=== PATIENT | female | born 1945 | race Caucasian/White ===

== ENCOUNTER 2020-03-26 12:56 | Outpatient (CLI) | payer MEDICARE, OTHER, SELFPAY ==
--- NOTE | ~2020-03-26 | XR_ITS ---
XR humerus RT DATE: 03/26/2020 13:26 INDICATION: Arm slammed in door. Pain and bruising of mid upper arm TECHNIQUE: AP and lateral views COMPARISON: None FINDINGS: No fracture or dislocation, periosteal reaction or bone destruction. Normal alignment at th e acromioclavicular, glenohumeral and elbow joints. IMPRESSION: No fracture or dislocation Reviewed, dictated and finalized at location A. IMPRESSION: No fracture or dislocation
== END 2020-03-26 12:57 | disposition home or self-care (01) ==
PROVIDERS: PCP Family Medicine; Visit Provider Family Medicine
DX: S49.91XA Unspecified injury of right shoulder and upper arm, initial encounter (principal); X58.XXXA Exposure to other specified factors, initial encounter
CPT/HCPCS: 73060

== ENCOUNTER → 2021-04-28 14:13 | Outpatient (CLI) | payer MEDICARE, OTHER, SELFPAY ==
--- NOTE | ~2021-04-28 | MMUS_ITS ---
EXAMINATION: MM diagnostic marvin BI w troy, US breast BI complete HISTORY: Bilateral superior breast pain TECHNIQUE: Bilateral ML, MLO and craniocaudal 3-D tomosynthesis images were performed and synthetic 2-D images were generated. CAD analysis was submitted and interpreted. High resolution complete bilat eral breast ultrasound including all 4 quadrants and subareolar areas was performed. COMPARISON: None BREAST PARENCHYMAL COMPOSITION: The breasts are heterogeneously dense, which may obscure small masses . FINDINGS: MAMMOGRAPHIC FINDINGS: There is nodular appearance of the fibroglandular stroma throughout both breasts which may obscure sm all masses. Bilateral complete breast ultrasound was performed. No architectural distortion, malignant calcification, skin thickening or retraction of either breast is evident. There are scattered bilateral benign calcifications. ULTRASOUND: No suspicious mass or shadowing of either breast is detected. IMPRESSION: 1. Benign calcification; no mammographic evidence of malignancy 2. Routine annual mammographic screening is recommended. BI-RADS Category 2: Benign finding(s). Reviewed, dictated and finalized at location A. PRODUCT IMPRESSION: 1. Benign calcification; no mammographic evidence of malignancy 2. Routine annual mammographic screening is recommended. BI-RADS Category 2: Benign finding(s).
== END ==
PROVIDERS: PCP Family Medicine; Visit Provider Family Medicine
DX: N64.4 Mastodynia (principal)
CPT/HCPCS: 76641; 77062; 77066; G0279

== ENCOUNTER 2022-08-08 11:50 | Emergency (ER) | payer MEDICARE, SELFPAY ==
--- NOTE | ~2022-08-08 | XR_ITS ---
XR shoulder LT min 2V 08/08/2022 12:32 Indication: Left shoulder pain and bruising Procedure: 4 views left shoulder Comparison: No prior studies for comparison. Findings: There is a minimally displaced vertically oriented fracture distal aspect of the clavicle. The acromioclavicular joint is intact. No other fracture. Osteopenia. Impression: 1: Minimally displaced distal clavicular fracture. Reviewed, dictated and finalized at location A. RANS SERVICES SPECIALIST Impression: 1: Minimally displaced distal clavicular fracture.
[2022-08-08 11:56] VITALS: BP 143/63; PULSE 73; RESP 14; TEMP 36.8; O2SAT 99
--- NOTE | 2022-08-08 14:25 | ED.FALL ---
HPI - Fall General Chief Complaint: Fall Stated Complaint: fall, left shoulder pain Time Seen by Provider: 08/08/22 14:06 History of Present Illness HPI Narrative: Patient is a 76-year-old female who presents ER with pain to her left shoulder. She did recover her Lux spaniel last night falling on her left side. She did not strike her head or lose consciousness. Has had increased pain in her shoulder and has been unable to use her left upper extremity at the shoulder due to pain. No numbness or tingling. Related Data Home Medications Medication Instructions Recorded Confirmed gabapentin 300 mg capsule 300 mg PO DAILY 05/22/19 metoprolol succinate 25 mg 25 mg PO DAILY 05/22/19 tablet,extended release 24 hr Allergies Allergy/AdvReac Type Severity Reaction Status Date / Time No Known Allergies Allergy Unverified 07/16/19 12:53 Review of Systems Musculoskeletal: Musculoskeletal: Reports arthralgias, Reports joint swelling and Denies muscle cramps Integumentary/Breasts: Skin/Breast: Denies erythema and Denies rash Comments: Bruising left shoulder Neurologic: Denies syncope, Denies focal weakness and Denies numbness PMFSH Past Medical History Medical History (Updated 08/08/22 @ 14:30 by Bernardino Beltran MD) Arthritis Inflammatory arthritis Surgical History Surgical History (Updated 08/08/22 @ 14:33 by Benrardino Beltran MD) No history of previous surgery Family History Family History Father Lung cancer Social History Social History Smoking status: Never smoker Alcohol intake: current Drinks per week: 1 Exam Narrative: GENERAL: Well-appearing, well-nourished, and in no acute distress. HEAD: Normocephalic, atraumatic. CHEST: Clear to auscultation. No respiratory distress. HEART: Regular rate and rhythm. Normal peripheral pulses. EXTREMITIES: Focused exam of the left upper extremity reveals bruising of the left shoulder at the clavicle and AC process. Tender in this area with slight swelling. Passive range of motion with internal and external rotation intact. Able to abduct to 90 degrees. Mild limitation in forward flexion due to pain. No range of motion or alert tenderness at the elbow or wrist muscle. NEURO: No focal deficits. Alert and oriented x3. PSYCH: Normal mood and affect. Course Course Emergency Course: Patient be placed in sling for comfort. Discussed diagnosis and treatment plan. Discussed range of motion exercises. Recommend follow-up with orthopedics. Vital Signs Vital signs: Vital Signs Temperature 98.2 F 08/08/22 11:56 Pulse Rate 73 08/08/22 11:56 Respiratory Rate 14 08/08/22 11:56 Blood Pressure 143/63 H 08/08/22 11:56 Pulse Oximetry 99 08/08/22 11:56 Oxygen Delivery Room Air 08/08/22 11:56 Temperature 98.2 F 08/08/22 11:56 Pulse Rate 72 08/08/22 15:04 Respiratory Rate 18 08/08/22 15:04 Blood Pressure 157/97 H 08/08/22 15:04 Pulse Oximetry 100 08/08/22 15:04 Oxygen Delivery Room Air 08/08/22 11:56 MDM - Fall Imaging Data Radiologist's impression: ITS Impressions Shoulder X-Ray 08/08/22 12:41 Impression: 1: Minimally displaced distal clavicular fracture. Discharge Plan Discharge Clinical Impression: Clavicle fracture Patient Disposition: Home, Self-Care Condition: Stable Instructions: Clavicle Fracture (ED), How to Use a Sling (ED) Additional Instructions: Return to the ER if you have recurrent injury, you have a cold/blue arm, you have chest pain with shortness of breath, or you have additional concerns. Prescriptions: New hydrocodone-acetaminophen 5-325 mg tablet 1 tablet PO Q6H PRN (Reason: pain) Qty: 14 0RF No Action metoprolol succinate 25 mg tablet extended release 24 hr 25 mg PO DAILY gabapentin 300 mg capsule 300 mg PO
[2022-08-08 15:04] VITALS: BP 157/97; PULSE 72; RESP 18; O2SAT 100
== END 2022-08-08 15:10 | disposition home or self-care (01) ==
PROVIDERS: Emergency Provider Emergency Medicine; PCP Family Medicine
DX: S42.032A Displaced fracture of lateral end of left clavicle, initial encounter for closed fracture (principal); M19.90 Unspecified osteoarthritis, unspecified site; W01.0XXA Fall on same level from slipping, tripping and stumbling without subsequent striking against object, initial encounter
CPT/HCPCS: 73030; 99284

== ENCOUNTER 2022-08-24 10:15 | Outpatient (CLI) | payer MEDICARE, SELFPAY ==
--- NOTE | ~2022-08-24 | XR_ITS ---
XR clavicle LT DATE: 08/24/2022 10:33 INDICATION: Distal clavicular pain. Fall. Pain. TECHNIQUE: AP and lateral AP views COMPARISON: August 08, 2024 left clavicle FINDINGS: There is interval approximately 1 mm superior displacement of the distal lateral fracture f ragment compared to approximately 1.8 mm inferior displacement on August 08, 2022. Normal alignment at the, clavicular and glenohumeral as well as sternoclavicular joints. IMPRESSION: Mild superior displacement of the lateral clavicular fracture fragment since August 08, 2022 Reviewed, dictated and finalized at location L. L INSPECTOR IMPRESSION: Mild superior displacement of the lateral clavicular fracture fragm ent since August 08, 2022
== END 2022-08-24 10:16 | disposition home or self-care (01) ==
PROVIDERS: PCP Family Medicine; Visit Provider Physician Assistant Surgical
DX: S42.002D Fracture of unspecified part of left clavicle, subsequent encounter for fracture with routine healing (principal); X58.XXXD Exposure to other specified factors, subsequent encounter
CPT/HCPCS: 73000

== ENCOUNTER 2024-06-04 14:31 | Observation (INO) | payer MEDICARE, SELFPAY ==
[2024-06-04] VITALS (13 sets, daily range): BP systolic 104–157; BP diastolic 58–104; PULSE 68–140; RESP 16–20; TEMP 36.8–38.1; O2SAT 98–100; BMI 21.0
--- NOTE | ~2024-06-04 | XR_ITS ---
EXAMINATION: XR chest 1V portable DATE: 06/04/2024 23:26 INDICATION: New onset atrial fibrillation. TECHNIQUE: A single frontal view of the chest was obtained. COMPARISON: CT abdomen and pelvis 06/26/2019 FINDINGS: There is no pneumonia, pleural effusion, or pneumothorax. The heart size is normal. IMPRESSION: 1. No acute cardiopulmonary disease. Reviewed, dictated and finalized at location A. NALISM PROFESSOR
--- NOTE | ~2024-06-04 | CT_ITS ---
CT brain wo con Ordering provider: Gwendolyn Dodd PA-C History: 78 years Female with . dizziness, new onset Afib . Comparison: None. Technique: CT of the head without contrast. Radiation reduction technique utilized.The dose-length product was 529.67 mGy-cm. FINDINGS: BRAIN PARENCHYMA AND CSF SPACES: Mild leukoaraiosis and diffuse cortical atrophy. Mild atheromatous d isease. No midline shift, mass effect or hemorrhage. The brain parenchyma and CSF spaces are otherwi se normal. VISUALIZED PARANASAL SINUSES: Bilateral sphenoid sinus disease. MASTOIDS: Well aerated. BONES: The bones appear intact. SOFT TISSUES: Visualized nasopharynx is normal. Superficial soft tissues are normal. IMPRESSION: No acute intracranial findings. Reviewed, dictated and finalized at location A. BUCKLE MAKER
--- NOTE | 2024-06-04 14:42 | ECG_ITS ---
Test Date: 2024-06-04 14:50:12 Measurements Intervals [place] Rate: 135 P: 0 MD: 0 QRS: 44 QRSD: 74 T: 269 QT: 265 QTc: 398 Interpretive Statements ATRIAL FIBRILLATION WITH RAPID VENTRICULAR RESPONSE ST DEVIATION AND MODERATE T-WAVE ABNORMALITY, CONSIDER LATERAL ISCHEMIA [-0.1+ mV T WAVE IN I/aVL/V5/V6] ST DEVIATION AND MODERATE T-WAVE ABNORMALITY, CONSIDER INFERIOR ISCHEMIA [-0.1+ mV T WAVE IN II/aVF] No previous ECG available for comparison Electronically Signed On 06-04-2024 21:21:41 PATIENT REGISTRATION CLERK by Colby Frazier M.D.
[2024-06-04 15:08] LABS: Basophils Percent Auto 0.5 % (0.2-1.2); Hematocrit 41.6 % (37.0-47.0); Hemoglobin 14.1 g/dL (12.0-15.0); Immature Granulocyte Absolute 0.01 K/mm3 (0.00-0.031); Immature Granulocyte Percent A 0.2 % (0-0.5); Lymphocytes Absolute Auto 0.41 K/mm3 (0.9-3.2); Lymphocytes Percent Auto 9.5 % (18.3-44.2); Mean Corpuscular HGB Conc 33.9 g/dl (32-36); Mean Corpuscular Hemoglobin 31.3 pg (26-34); Mean Corpuscular Volume 92.2 fl (80-100); Mean Platelet Volume 10.5 fl (7.4-10.4); Monocytes Absolute Auto 0.5 K/mm3 (0.1-0.6); Monocytes Percent Auto 11.1 % (2.6-8.5); Neutrophils Absolute Auto 3.4 K/mm3 (1.3-6.7); Neutrophils Percent Auto 78.7 % (45.5-73.1); Platelet Count Result 178 k/mm3 (150-375); Red Blood Count 4.51 M/mm3 (4.2-5.4); Red Cell Distribution Width 13.1 % (11.5-14.5); White Blood Count 4.3 K/mm3 (4.5-10.0)
[2024-06-04 15:18] LABS: Alanine Aminotransferase 13 U/L (6-35); Albumin Level 4.5 g/dL (3.5-5.1); Alkaline Phosphatase 124 U/L (38-126); Anion Gap 3 mmol/L (4-12); Aspartate Amino Transferase 24 U/L (14-36); Bilirubin,Total 0.6 mg/dL (0.2-1.3); Blood Urea Nitrogen 11 mg/dL (7-17); Calcium 9.4 mg/dL (8.4-10.2); Carbon Dioxide 30 mmol/L (22-30); Chloride 103 mmol/L (98-107); Estimated CRCL calculation 37 ml/min; Estimated Glomerular Filt Rate 54; Glucose 116 mg/dL (65-110); Potassium 3.5 mmol/L (3.4-5.0); Sodium 136 mmol/L (137-145)
--- NOTE | 2024-06-04 15:18 | PC.NURSE ---
Pt denies any complaints. reports pt had a dizzy spell this AM which caused her to sit down after trying to wrangle the dogs. Pt has no cardia hx, denies CP, SOB, dizziness currently.
[2024-06-04 15:22] LABS: Prothrombin Time 13.3 Seconds (11.1-14.7)
[2024-06-04 15:29] LABS: Troponin I < 0.012 ng/mL (0.000-0.034)
--- NOTE | 2024-06-04 15:32 | ED.DIZZY ---
HPI - Dizziness General Chief Complaint: Dizziness Stated Complaint: dizziness Time Seen by Provider: 06/04/24 15:24 History of Present Illness HPI Narrative: Pt presents with lightheadedness for several days. Pt denies CP or SOB or palpitations. Pt has no history of a fib. Related Data Home Medications ?Medication ?Instructions ?Recorded ?Confirmed ?Last Taken ?Type gabapentin 300 mg capsule 300 mg PO DAILY 05/22/19 10/19/22 Unknown History metoprolol succinate 25 mg 25 mg PO DAILY 05/22/19 10/19/22 Unknown History tablet,extended release 24 hr Allergies Allergy/AdvReac Type Severity Reaction Status Date / Time No Known Allergies Allergy Verified 06/04/24 14:32 Review of Systems Review of Systems: All systems reviewed & are unremarkable except as noted in HPI and below PMFSH Past Medical History Medical History Arthritis Closed fracture of distal clavicle (~08/08/22) Left Inflammatory arthritis Surgical History Surgical History No history of previous surgery Family History Family History Father Lung cancer Social History Social History Smoking status: Never smoker Alcohol intake: never Drinks per week: 1 Substance use: never Do You Feel Safe in your Home?: No Lack of Transportation: No Lack of Food: Never True Current Housing: I Have Housing Concerned About Future Housing: No Difficulty Paying Gas/Electric Bills: No Difficulty Paying for Meds: No Currently Unemployed: No Education: Don't Know Difficulty w/ Childcare or Family Care: No Spiritual care concerns: No Exam Const: General: healthy appearing and no acute distress Nutritional Appearance: well nourished Orientation/consciousness: patient oriented x3 Limitations: no limitations Resp: Effort & Inspection: normal respiratory effort Auscultation: clear to auscultation bilaterally Cardio: Rate: tachycardic Rhythm: abnormal rhythm irregularly irregular GI: Auscultation: normal bowel sounds Skin: General skin exam: normal color Wounds: no wounds Neuro: General: patient oriented x3, moves all extremities, no meningeal signs, no focal motor deficits and CN's II-XI intact bilaterally Cranial nerves: Yes Nystagmus not present Speech: normal speech Extrem: General: normal to inspection and no clubbing, cyanosis or edema Psych: Mental Status: mental status grossly normal Affect: normal affect Attitude: cooperative Course Vital Signs Vital signs: Vital Signs Temperature 99.5 F 06/04/24 14:44 Pulse Rate 135 H 06/04/24 14:44 Respiratory Rate 18 06/04/24 14:44 Blood Pressure 127/92 H 06/04/24 14:44 Pulse Oximetry 98 06/04/24 14:44 Oxygen Delivery Room Air 06/04/24 14:44 Temperature 99.7 F H 06/04/24 18:20 Pulse Rate 133 H 06/04/24 18:20 Respiratory Rate 16 06/04/24 18:20 Blood Pressure 124/87 06/04/24 18:20 Pulse Oximetry 99 06/04/24 18:20 Oxygen Delivery Room Air 06/04/24 14:44 MDM - Dizziness MDM Narrative Medical decision making narrative: Pt in new onset a fib with rvr. onset unknown. Pt denies CP. will start cardizem and admit for rate control and further work up. rate controlled with cardizem. discussed with Gwendolyn Castaneda and agrees to admit. Lab Data 06/04/24 14:58 06/04/24 14:58 Labs: Lab Results 06/04/24 Range/Units 14:58 WBC 4.3 L (4.5-10.0) K/mm3 RBC 4.51 (4.2-5.4) M/mm3 Hgb 14.1 (12.0-15.0) g/dL Hct 41.6 (37.0-47.0) % MCV 92.2 (80-100) fl MCH 31.3 (26-34) pg MCHC 33.9 (32-36) g/dl RDW 13.1 (11.5-14.5) % Plt Count 178 (150-375) k/mm3 MPV 10.5 H (7.4-10.4) fl Immature Gran % (Auto) 0.2 (0-0.5) % Neut % (Auto) 78.7 H (45.5-73.1) % Lymph % (Auto) 9.5 L (18.3-44.2) % Lawrence % (Auto) 11.1 H (2.6-8.5) % Eos % (Auto) 0.0 (0-4.4) % Baso % (Auto) 0.5 (0.2-1.2) % Lymph # (Auto) 0.41 L (0.9-3.2) K/mm3 Lawrence # (Auto) 0.5 (0.1-0.6) K/mm3 Eos # (Auto) 0.0 (0-0.3) K/mm3 Baso # (Auto) 0.0 (0.0-0.1) K/mm3 Abs Immat Gran (auto) 0.01 (0.00-0.031) K/mm3 Absolute Neuts (auto) 3.4 (1.3-6.7) K/mm3 Absolute Nucleated RBC 0.000 (0.0-0.012) K/mm3 Nucleated RBC % 0.0 (0.0-0.2) % PT 13.3 (11.1-14.7) Seconds INR 1.0 APTT 26.0 (22.3-36.8) Seconds Sodium 136 L (137-145) mmol/L Potassium 3.5 (3.4-5.0) mmol/L Chloride 103 (98-107) mmol/L Carbon Dioxide 30 (22-30) mmol/L Anion Gap 3 L (4-12) mmol/L BUN 11 (7-17) mg/dL Creatinine 1.00 (0.7-1.0) mg/dL Estim Creat Clear Calc 37 ml/min Estimated GFR 54 L (59 - ) Glucose 116 H (65-110) mg/dL Calcium 9.4 (8.4-10.2) mg/dL Total Bilirubin 0.6 (0.2-1.3) mg/dL AST 24 (14-36) U/L ALT 13 (6-35) U/L Alkaline Phosphatase 124 (38-126) U/L Troponin I < 0.012 (0.000-0.034) ng/mL Total Protein 8.0 (6.3-8.2) g/dL Albumin 4.5 (3.5-5.1) g/dL Discharge Plan Discharge Clinical Impression: Atrial fibrillation with rapid ventricular response Patient Disposition: Still a Patient Condition: Improved
[2024-06-04] MEDS: dilTIAZem 100 MG/100 ML 100 MG/100 ML BAG IV CONT (15:52)
[2024-06-04] MEDS: dilTIAZem HCl INJ 25 MG/5 ML VIAL 10 MG IV PUSH (15:52)
--- NOTE | 2024-06-04 17:16 | ADMGEN ---
This patient, Blessing Carrington, was admitted to IMU Room 231-01. Patient/family oriented to hospital policies and general routines including ID bracelet, bed and alarms, visiting hours, pain management, procedures, bathroom and other care routines, personal items, smoking policy, room service/diet, and visiting hours. Information on how to activate the Rapid Response Team has been discussed. Patient/Family are encouraged to report perceived risks to care and to ask questions if they do not understand what they are told or what they should do.
--- NOTE | 2024-06-04 18:05 | P.HP_ITS ---
H&P: HPI History of Present Illness Date/Time: 06/04/24 17:15 Chief Complaint: Dizziness. Narrative: This is a very pleasant 78-year-old female with history of hypertension, osteopenia, and inflammatory arthritis who presented to the emergency department via private vehicle accompanied by her for evaluation of dizziness and fast heart rate. The patient provides the following history but seems to have some short-term memory loss and her provides additional information with the patient's permission. Today while doing nothing in particular around the home she told her that she was feeling quite dizzy and a bit sick to her stomach. Her heart rate was reportedly racing and she was brought in for evaluation. While sitting down she feels just fine she has no complaints at the time my evaluation. She denies syncope, near syncope, fever, chills, sweats, recent cold and flu symptoms, chest pain, pleuritic pain, shortness of breath, cough, vomiting, diarrhea, and dysuria. She also denies vertigo, visual changes, facial droop, difficulty speaking and swallowing, focal weakness, paresthesias. No history of thyroid disease. She denies significant alcohol and caffeine use. In the ED: She was afebrile on arrival with stable blood pressures. Heart rate has been as high as the mid 140s and she is in atrial fibrillation which is reportedly new diagnosis for her. Labs were significant for WBC count of 4.3, sodium 136, troponin less than 0.012. EKG showed rapid atrial fibrillation with ST deviation in the inferior and lateral leads. She was started on a diltiazem drip in the emergency department with improvement in her rates and she is being admitted in this setting for close monitoring and further workup. Review of Systems Review of Systems: 12 systems were reviewed and are negativ e except for as per HPI. COUNT INCLUDES THE [facility] Past Medical History Medical History (Updated 06/04/24 @ 23:10 by Gwendolyn Dodd PA-C) Osteopenia Hypertension Closed fracture of distal clavicle (08/08/22) left Inflammatory arthritis Arthritis Surgical History Surgical History No history of previous surgery Family History Family History Father Lung cancer Social History Social History (Updated 06/04/24 @ 23:09 by Gwendolyn Dodd PA-C) Social History: Surrogate medical decision maker: Anastacio Carrington, spouse. Code status: Full code. Smoking status: Never smoker Alcohol intake: never Drinks per week: 1 Substance use: never Do You Feel Safe in your Home?: No Lack of Transportation: No Lack of Food: Never True Current Housing: I Have Housing Concerned About Future Housing: No Difficulty Paying Gas/Electric Bills: No Difficulty Paying for Meds: No Currently Unemployed: No Education: Don't Know Difficulty w/ Childcare or Family Care: No Spiritual care concerns: No Meds Home Medications and Allergies Home Medications ?Medication ?Instructions ?Recorded ?Confirmed ?Type gabapentin 300 mg capsule 300 mg PO DAILY 05/22/19 06/04/24 History metoprolol succinate 25 mg 25 mg PO DAILY 05/22/19 06/04/24 History tablet,extended release 24 hr gabapentin 600 mg tablet 600 mg PO HS 06/04/24 06/04/24 History losartan 100 mg tablet 100 mg PO DAILY 06/04/24 06/04/24 History Allergies Allergy/AdvReac Type Severity Reaction Status Date / Time No Known Allergies Allergy Verified 06/04/24 14:32 Vital Signs Vital Signs - 24 hr 06/04/24 14:44 06/04/24 15:12 06/04/24 15:52 Temperature 99.5 F Pulse Rate 135 H 140 H 139 H Respiratory Rate 18 18 Blood Pressure 127/92 H 157/94 H 145/104 H Pulse Oximetry 98 100 Oxygen Delivery Room Air 06/04/24 16:04 06/04/24 16:48 Temperature Pulse Rate 91 98 Respiratory Rate 16 20 Blood Pressure 111/79 104/58 L Pulse Oximetry 100 100 Oxygen Delivery Exam Narrative: General: Well-developed, nontoxic-appearing female sitting up in bed in no acute distress. Weight: 55.7 kg. BMI: 21.1. HEENT: PERRL, EOMI. Sclera anicteric. Oral mucosa moist. Oropharynx clear. Neck: Supple. No JVD. Respiratory: Lungs are clear to auscultation bilaterally. Cardiovascular: Irregularly irregular rate and rhythm. No significant murmur. Gastrointestinal: Abdomen is soft, nontender, and nondistended with positive bowel sounds. Skin: Warm and dry. No rash or lesions on limited exam. Extremities: No cyanosis, clubbing, or edema. Radial and pedal pulses intact. Neurological: Alert and oriented to name, age, date of , and place. She cannot provide me with the current year.. Cranial nerves 2-12 are grossly intact. Speech is clear. No facial asymmetry. No gross focal deficits to casual conversation. Psychiatric: Pleasant and cooperative. Appropriate mood and affect. Seems to suffer from short-term memory loss. H&P: Results Labs Labs: Short CBC 06/04/24 Range/Units 14:58 WBC 4.3 L (4.5-10.0) K/mm3 Hgb 14.1 (12.0-15.0) g/dL Hct 41.6 (37.0-47.0) % Plt Count 178 (150-375) k/mm3 BMP 06/04/24 14:58 Sodium 136 L Potassium 3.5 Chloride 103 Carbon Dioxide 30 BUN 11 Creatinine 1.00 Glucose 116 H Calcium 9.4 Cardiac Enzymes 06/04/24 Range/Units 14:58 Troponin I < 0.012 (0.000-0.034) ng/mL Liver Function 06/04/24 Range/Units 14:58 Total Bilirubin 0.6 (0.2-1.3) mg/dL AST 24 (14-36) U/L ALT 13 (6-35) U/L Alkaline Phosphatase 124 (38-126) U/L Albumin 4.5 (3.5-5.1) g/dL Assessment and Plan Assessment and plan (1) Atrial fibrillation with rapid ventricular response: Code(s): I48.91 - Unspecified atrial fibrillation Status: Acute (2) Hypertension: Code(s): I10 - Essential (primary) hypertension Status: Acute Plan The patient presented to the emergency department for evaluation of dizziness as detailed in HPI. Labs, imaging, EKG, and all reports were personally reviewed. She was found to be in rapid atrial fibrillation on arrival which may very well be the cause of her dizziness. She is currently on a diltiazem drip with improvement in her rate. Echocardiogram and TSH are pending. CHADS2 score is 4 (sex, age, hypertension) and oral anticoagulation is indicated however will hold on that pending brain CT. Care coordination to check with insurance to preauthorize Eliquis. Blood pressures were reviewed and they are stable. Her home medications will be reviewed and resumed as appropriate. Findings and treatment plan were discussed with the patient. Questions were solicited and answered to satisfaction. The patient's medical management will be taken over by the hospitalist team in a.m. Quality VTE Prophylaxis VTE prophylaxis: mechanical ordered If No VTE Prophylaxis Answer both mechanical and pharmacologic: Reason no pharmacologic proph: medical contraindication (pending brain CT) The patient has been admitted under observation status. Hospitalist [facility] Advance Care Plan I have confirmed that the patient's Advanced Care Plan is present, code status is documented, or surrogate decision maker is listed in patient medical record.: Yes Medication Reconciliation I have utilized all available resources to obtain, update and review the patients current medications (includes all prescriptions, OTC, herbals, cannabis, and nutritional supplements).: Yes
--- NOTE | 2024-06-04 18:59 | PC.NURSE ---
Anastacio called at [phone] to confirm medication. No answer x 2. Will report off to tailor apprentice.
[2024-06-04] MEDS: METOPROLOL TARTRATE 25 MG TABLET PO (20:03)
--- NOTE | 2024-06-04 21:53 | ECG_ITS ---
Test Date: 2024-06-04 22:18:30 Measurements Intervals [place] Rate: 70 P: 88 ND: 181 QRS: 47 QRSD: 81 T: -60 QT: 359 QTc: 388 Interpretive Statements SINUS RHYTHM LEFT VENTRICULAR HYPERTROPHY AND ST-T CHANGE [VOLTAGE CRITERIA PLUS ST/T ABNORMALITY] Compared to ECG 06/04/2024 14:50:12 Atrial fibrillation no longer present Electronically Signed On 06-05-2024 16:13:17 PRACTICE SUPPORT SPECIALIST by Homa Lang M.D.
[2024-06-04] MEDS: ACETAMINOPHEN 325 MG TABLET 650 MG PO (23:39)
[2024-06-04] MEDS: GABAPENTIN 300 MG CAPSULE 600 MG PO (23:39)
[2024-06-05] VITALS (15 sets, daily range): BP systolic 116–169; BP diastolic 46–74; PULSE 60–83; RESP 16–18; TEMP 36.9–37.5; O2SAT 96–100
--- NOTE | 2024-06-05 04:19 | PC.NURSE ---
Patient moved by bed to 205-2 at 0350. Belongings with patient at bedside.
[2024-06-05 04:53] LABS: Hematocrit 35.7 % (37.0-47.0); Mean Corpuscular HGB Conc 33.6 g/dl (32-36); Mean Corpuscular Hemoglobin 31.4 pg (26-34); Mean Corpuscular Volume 93.5 fl (80-100); Platelet Count Result 152 k/mm3 (150-375); Red Blood Count 3.82 M/mm3 (4.2-5.4); Red Cell Distribution Width 13.2 % (11.5-14.5); White Blood Count 3.4 K/mm3 (4.5-10.0)
[2024-06-05 05:03] LABS: Cholesterol 264 mg/dL (0-200); HDL Direct 64 mg/dL; Triglycerides 85 mg/dL (<150)
[2024-06-05 05:04] LABS: Anion Gap 1 mmol/L (4-12); Blood Urea Nitrogen 15 mg/dL (7-17); Carbon Dioxide 28 mmol/L (22-30); Chloride 102 mmol/L (98-107); Estimated CRCL calculation 40 ml/min; Estimated Glomerular Filt Rate > 60; Glucose 84 mg/dL (65-110); Potassium 3.5 mmol/L (3.4-5.0); Sodium 131 mmol/L (137-145)
[2024-06-05 05:14] LABS: LDL Cholesterol Direct 139 mg/dL
[2024-06-05 05:38] LABS: Thyroid Stimulating Hormone Reflex 0.798 uIU/mL (0.465-4.68)
--- NOTE | 2024-06-05 09:10 | P.PNIM_ITS ---
Progress Note: A&P Assessment and Plan (1) Atrial fibrillation with rapid ventricular response: Code(s): I48.91 - Unspecified atrial fibrillation Status: Acute (2) Hypertension: Code(s): I10 - Essential (primary) hypertension Status: Acute Plan New onset AFib RVR The patient presented to the emergency department for evaluation of dizziness She was found to be in rapid atrial fibrillation on arrival which may very well be the cause of her dizziness. diltiazem drip with improvement in her rate. Echocardiogram and TSH are pending. CHADS2 >2) oral anticoagulation is indicated Start Eliquis. Appreciate library monitor consultation Continue metoprolol 25 mg daily p.o., library monitor were provide patient with ambulator monitor upon discharge Traveling Operator will follow-up patient of patient Elevated troponin Troponin is trending up, Possible demand ischemia due to AFib RVR T-wave inverted inferior lead, lead 3 to 4 Start aspirin 325 mg once and 81 mg daily echocardiogram 1. Left ventricular chamber dimension is normal. 2. Left ventricular systolic function is normal, estimated at 60-65%. 3. There is mildly increased left ventricular wall thickness. 4. The left ventricular diastolic function is grade I diastolic dysfunction. 5. Right ventricular systolic function is normal. 6. Left atrial chamber dimension is mildly enlarged. 7. Right atrial chamber dimension is mildly enlarged. 8. There is mild mitral valve regurgitation. 9. There is mild tricuspid valve regurgitation. Traveling Operator will follow-up patient of patient Essential hypertension Blood pressures stable. Hyponatremia Possible due to SIADH due to AFib RVR, patient is not on diuretic medication Continue losartan 100 mg daily p.o. metoprolol 25 mg daily p.o. Sodium 131 Follow-up in the primary care doctor in 1 week Subjective Date/time seen: 06/05/24 09:10 Interval history: I saw exam patient today. Patient feels comfortable, denies chest pain palpitation lightheadedness. Patient also denies abdomen pain nausea vomiting bloody stool. Patient is afebrile blood pressure stable Exam Narrative: GENERAL: Pleasant, in no acute distress. Well-nourished. - EYES: EOMI. Anicteric. - HENT: Moist mucous membranes. - LUNGS: Clear to auscultation bilateral ly, no wheezing, rhonchi, or rales. - CARDIOVASCULAR: Regular rate and rhyth m. No murmur. No JVD. - ABDOMEN: Soft, non-tender and non-dist ended. No palpable masses. - EXTREMITIES: No edema. Peripheral puls es 2+. Non-tender. - NEUROLOGIC: No focal neurological defi cits. CN II-XII grossly intact. - PSYCHIATRIC: Awake, Alert and oriented x 3. Appropriate mood and affect. - SKIN: No rashes or lesions. Warm. - LYMPH: No cervical lymphadenopathy. Objective Data Vital Signs Vital Signs: Vital Signs - 24 hr 06/04/24 14:44 06/04/24 15:12 06/04/24 15:52 Temperature 99.5 F Pulse Rate 135 H 140 H 139 H Respiratory Rate 18 18 Blood Pressure 127/92 H 157/94 H 145/104 H Pulse Oximetry 98 100 Oxygen Delivery Room Air 06/04/24 16:04 06/04/24 16:48 06/04/24 17:10 Temperature 99.3 F Pulse Rate 91 98 116 H Respiratory Rate 16 20 20 Blood Pressure 111/79 104/58 L 120/83 Pulse Oximetry 100 100 100 Oxygen Delivery 06/04/24 17:10 06/04/24 18:00 06/04/24 18:00 Temperature Pulse Rate 116 H 123 H 123 H Respiratory Rate Blood Pressure 120/83 124/87 Pulse Oximetry Oxygen Delivery 06/04/24 18:20 06/04/24 20:00 06/04/24 20:00 Temperature 99.7 F H 98.3 F Pulse Rate 133 H 117 H 132 H Respiratory Rate 16 16 Blood Pressure 124/87 118/95 H 118/95 H Pulse Oximetry 99 100 Oxygen Delivery 06/04/24 20:03 06/04/24 22:00 06/04/24 22:00 Temperature 99.6 F Pulse Rate 131 H 69 68 Respiratory Rate 18 Blood Pressure 133/61 133/61 Pulse Oximetry 98 Oxygen Delivery 06/04/24 22:00 06/04/24 23:35 06/04/24 23:39 Temperature 100.5 F H 100.5 F H Pulse Rate 68 69 Respiratory Rate 18 Blood Pressure 128/59 L Pulse Oximetry 100 Oxygen Delivery 06/05/24 00:00 06/05/24 00:00 06/05/24 00:21 Temperature Pulse Rate 67 67 65 Respiratory Rate Blood Pressure 128/59 L Pulse Oximetry Oxygen Delivery 06/05/24 00:39 06/05/24 02:00 06/05/24 03:51 Temperature 99.5 F 99.5 F Pulse Rate 60 62 Respiratory Rate 18 Blood Pressure 116/48 L Pulse Oximetry 97 Oxygen Delivery 06/05/24 04:00 06/05/24 04:00 06/05/24 06:00 Temperature Pulse Rate 64 63 Respiratory Rate Blood Pressure Pulse Oximetry Oxygen Delivery Room Air 06/05/24 08:00 06/05/24 08:59 Temperature 98.4 F Pulse Rate 83 Respiratory Rate 18 Blood Pressure 130/46 L Pulse Oximetry 100 96 Oxygen Delivery Room Air Intake/Output Intake/Output: Intake & Output 06/02/24 06/03/24 06/04/24 06/05/24 23:59 23:59 23:59 23:59 Intake Total 30.7 251.8 Output Total 300 Balance 30.7 -48.2 Meds/Results Medications: Active Medications Generic Name Dose Route Start Last Admin Trade Name Freq PRN Reason Stop Dose Admin Acetaminophen 650 mg 06/04/24 23:12 06/04/24 23:39 Acetaminophen 325 Mg Tablet PO 650 mg Q6H PRN Administration Mild Pain (1-3) or Fever Gabapentin 600 mg 06/04/24 23:20 06/04/24 23:39 Gabapentin 300 Mg Capsule PO 600 mg HS LUZ MARIA Administration Losartan Potassium 100 mg 06/05/24 09:00 Losartan Potassium 100 Mg Tablet PO DAILY LUZ MARIA Metoprolol Succinate 25 mg 06/05/24 09:00 Metoprolol Succinate Ext Rel 25 Mg Tabcr PO DAILY LUZ MARIA Perflutren Lipid Microsphere 0 ml 06/04/24 23:12 Perflutren Lipid Microspheres 1.5 Ml Vial Diluted To 10 Ml Total Volume IV PUSH 06/07/24 23:12 ONCE PRN adequate visualization Protocol Radiology Results: ITS Impressions Chest X-Ray 06/04/24 23:27 IMPRESSION: 1. No acute cardiopulmonary disease. Labs Labs: Laboratory Results - last 24 hr 06/04/24 06/04/24 06/04/24 14:58 18:58 22:26 WBC 4.3 L RBC 4.51 Hgb 14.1 Hct 41.6 MCV 92.2 MCH 31.3 MCHC 33.9 RDW 13.1 Plt Count 178 MPV 10.5 H Immature Gran % (Auto) 0.2 Neut % (Auto) 78.7 H Lymph % (Auto) 9.5 L [place] % (Auto) 11.1 H Eos % (Auto) 0.0 Baso % (Auto) 0.5 Lymph # (Auto) 0.41 L [place] # (Auto) 0.5 Eos # (Auto) 0.0 Baso # (Auto) 0.0 Abs Immat Gran (auto) 0.01 Absolute Neuts (auto) 3.4 Absolute Nucleated RBC 0.000 Nucleated RBC % 0.0 PT 13.3 INR 1.0 APTT 26.0 Sodium 136 L Potassium 3.5 Chloride 103 Carbon Dioxide 30 Anion Gap 3 L BUN 11 Creatinine 1.00 Estim Creat Clear Calc 37 Estimated GFR 54 L Glucose 116 H Calcium 9.4 Magnesium Total Bilirubin 0.6 AST 24 ALT 13 Alkaline Phosphatase 124 Troponin I < 0.012 0.030 D 0.040 H* D Total Protein 8.0 Albumin 4.5 Triglycerides Cholesterol LDL Cholesterol Direct HDL Direct TSH (Reflex) 06/05/24 04:36 WBC 3.4 L RBC 3.82 L Hgb 12.0 Hct 35.7 L MCV 93.5 MCH 31.4 MCHC 33.6 RDW 13.2 Plt Count 152 MPV 11.0 H Immature Gran % (Auto) Neut % (Auto) Lymph % (Auto) [place] % (Auto) Eos % (Auto) Baso % (Auto) Lymph # (Auto) [place] # (Auto) Eos # (Auto) Baso # (Auto) Abs Immat Gran (auto) Absolute Neuts (auto) Absolute Nucleated RBC Nucleated RBC % PT INR APTT Sodium 131 L Potassium 3.5 Chloride 102 Carbon Dioxide 28 Anion Gap 1 L BUN 15 Creatinine 0.90 Estim Creat Clear Calc 40 Estimated GFR > 60 Glucose 84 Calcium 9.0 Magnesium 2.0 Total Bilirubin AST ALT Alkaline Phosphatase Troponin I Total Protein Albumin Triglycerides 85 Cholesterol 264 H LDL Cholesterol Direct 139 HDL Direct 64 TSH (Reflex) 0.798
[2024-06-05] MEDS: LOSARTAN POTASSIUM 100 MG TABLET PO (09:39)
[2024-06-05] MEDS: ASPIRIN 81 MG CHEWABLE TABLET 324 MG PO (09:39)
[2024-06-05] MEDS: METOPROLOL SUCCINATE EXT REL 25 MG TABCR PO (09:39)
--- NOTE | 2024-06-05 13:05 | P.CONCA_ITS ---
Assessment and Plan Assessment and plan (1) Atrial fibrillation with rapid ventricular response: Code(s): I48.91 - Unspecified atrial fibrillation Status: Acute (2) Hypertension: Code(s): I10 - Essential (primary) hypertension Status: Acute Plan Assessment 1. New onset nonvalvular atrial fibrillation with rapid ventricular response- symptomatic with dizziness due to rapid heart rates -though she had dizziness with a fib with rapid ventricular response she is asymptomatic with a fib with controlled rates in the 60s. Thus, exact time of onset of a fib cannot be confirmed -[id number] score of 4 (age>75 2 points, hypertension 1 point, female sex 1 point) -elevated troponin of 0.04 -EKG shows atrial fibrillation with rapid ventricular response, diffuse ST depressions most likely rate related -TTE shows LVEF to be normal at 60% and no significant valvular heart disease -etiology unclear; rule out ischemia and thyroid disease -no history of bleeding; hemoglobin 12 2. Dizziness secondary to atrial fibrillation with RVR 3. Hypertension 4. Elevated troponin of 0.04 -most likely secondary to rapid ventricular response; no chest pain before or during this admission 5. Borderline potassium level of 3.5 Plan 1. Trend troponin to peak 2. Check TSH and free T4 3. TTE result as above 4. She is currently on metoprolol 25 mg daily. Her heart her heart rate is in the 60s. Continue this dose for now and up titrate to 25 mg b.i.d. if heart rates are greater than 90. Hold metoprolol for systolic blood pressure less than 110 mm Hg 5. Start anticoagulation with NOAC 6. The onset of a fib appears to be yesterday morning though she could have had a fib without rapid rates prior to this. Thus, recommended ABDI guided cardioversion to rule out clot. I also gave her the option of cardioversion after 4 weeks of uninterrupted anticoagulation. Patient prefers the latter approach. We will schedule for outpatient cardioversion after 4 weeks of uninterrupted anticoagulation 7. Recommend outpatient stress test to rule out underlying ischemia 8. Check and replace electrolytes as needed. Keep potassium> 4 and magnesium> 2 9. Continue losartan for blood pressure control Ten above plan was discussed with patient and her and they are agreeable History of Present Illness History of Present Illness Consult date/time: 06/05/24 13:05 Consult reason: atrial fibrillation (with RVR) Reason For Visit: a fib with rvr Narrative: Ms. Funk is a 78 year old female with history of hypertension, osteopenia who was admitted with dizziness and noted to have atrial fibrillation with RVR. She was given Cardizem IV and then transitioned to p.o. metoprolol. Cardiology was consulted for further management of atrial fibrillation. Patient is accompanied by her who provides some of the history along with the patient. Patient's states that she was having dizziness since yesterday morning. He found her on the floor feeling dizzy and helped her get up. She did not lose consciousness at any time. The dizziness lasted for a few hours before it completely resolved. She did not have dizziness prior to this. Patient denies any chest pain, shortness of breath, palpitations, lower extremity swelling, recent weight gain, presyncope, or syncope. Heart rate at the time of my interview was in the 60s. Workup: Troponin elevated to 0.04 EKG atrial fibrillation with rapid ventricular response, diffuse ST depressions Chest x-ray negative for any acute cardiopulmonary pathology CT head negative for any acute finding TTE on this admission: Summary 1. Left ventricular chamber dimension is normal. 2. Left ventricular systolic function is normal, estimated at 60-65%. 3. There is mildly increased left ventricular wall thickness. 4. The left ventricular diastolic function is grade I diastolic dysfunction. 5. Right ventricular systolic function is normal. 6. Left atrial chamber dimension is mildly enlarged. 7. Right atrial chamber dimension is mildly enlarged. 8. There is mild mitral valve regurgitation. 9. There is mild tricuspid valve regurgitation. Review of Systems 2 Review of Systems: A complete review of systems was performed and pertinent positives are noted in the history of present illness. [facility] Past Medical History Medical History (Updated 06/04/24 @ 23:10 by Gwendolyn Dodd PA-C) Osteopenia Hypertension Closed fracture of distal clavicle (08/08/22) left Inflammatory arthritis Arthritis Surgical History Surgical History No history of previous surgery Family History Family History Father Lung cancer Social History Social History (Updated 06/04/24 @ 23:09 by Gwendolyn G Gerling, PA-C) Social History: Surrogate medical decision maker: Anastacio Carrington, spouse. Code status: Full code. Smoking status: Never smoker Alcohol intake: never Drinks per week: 1 Substance use: never Do You Feel Safe in your Home?: No Lack of Transportation: No Lack of Food: Never True Current Housing: I Have Housing Concerned About Future Housing: No Difficulty Paying Gas/Electric Bills: No Difficulty Paying for Meds: No Currently Unemployed: No Education: Don't Know Difficulty w/ Childcare or Family Care: No Spiritual care concerns: No Meds Home Medications and Allergies Home Medications ?Medication ?Instructions ?Recorded ?Confirmed ?Type gabapentin 300 mg capsule 300 mg PO DAILY 05/22/19 06/04/24 History metoprolol succinate 25 mg 25 mg PO DAILY 05/22/19 06/04/24 History tablet,extended release 24 hr gabapentin 600 mg tablet 600 mg PO HS 06/04/24 06/04/24 History losartan 100 mg tablet 100 mg PO DAILY 06/04/24 06/04/24 History Allergies Allergy/AdvReac Type Severity Reaction Status Date / Time No Known Allergies Allergy Verified 06/04/24 14:32 Vital Signs Vital Signs - 24 hr 06/04/24 14:44 06/04/24 15:12 06/04/24 15:52 Temperature 37.5 C Pulse Rate 135 H 140 H 139 H Respiratory Rate 18 18 Blood Pressure 127/92 H 157/94 H 145/104 H Pulse Oximetry 98 100 Oxygen Delivery Room Air 06/04/24 16:04 06/04/24 16:48 06/04/24 17:10 Temperature 37.4 C Pulse Rate 91 98 116 H Respiratory Rate 16 20 20 Blood Pressure 111/79 104/58 L 120/83 Pulse Oximetry 100 100 100 Oxygen Delivery 06/04/24 17:10 06/04/24 18:00 06/04/24 18:00 Temperature Pulse Rate 116 H 123 H 123 H Respiratory Rate Blood Pressure 120/83 124/87 Pulse Oximetry Oxygen Delivery 06/04/24 18:20 06/04/24 20:00 06/04/24 20:00 Temperature 37.6 C H 36.8 C Pulse Rate 133 H 117 H 132 H Respiratory Rate 16 16 Blood Pressure 124/87 118/95 H 118/95 H Pulse Oximetry 99 100 Oxygen Delivery 06/04/24 20:03 06/04/24 22:00 06/04/24 22:00 Temperature 37.6 C Pulse Rate 131 H 69 68 Respiratory Rate 18 Blood Pressure 133/61 133/61 Pulse Oximetry 98 Oxygen Delivery 06/04/24 22:00 06/04/24 23:35 06/04/24 23:39 Temperature 38.1 C H 38.1 C H Pulse Rate 68 69 Respiratory Rate 18 Blood Pressure 128/59 L Pulse Oximetry 100 Oxygen Delivery 06/05/24 00:00 06/05/24 00:00 06/05/24 00:21 Temperature Pulse Rate 67 67 65 Respiratory Rate Blood Pressure 128/59 L Pulse Oximetry Oxygen Delivery 06/05/24 00:39 06/05/24 02:00 06/05/24 03:51 Temperature 37.5 C 37.5 C Pulse Rate 60 62 Respiratory Rate 18 Blood Pressure 116/48 L Pulse Oximetry 97 Oxygen Delivery 06/05/24 04:00 06/05/24 04:00 06/05/24 06:00 Temperature Pulse Rate 64 63 Respiratory Rate Blood Pressure Pulse Oximetry Oxygen Delivery Room Air 06/05/24 08:00 06/05/24 08:59 06/05/24 09:39 Temperature 36.9 C Pulse Rate 83 80 Respiratory Rate 18 Blood Pressure 130/46 L Pulse Oximetry 100 96 Oxygen Delivery Room Air 06/05/24 12:00 Temperature 37.3 C Pulse Rate 82 Respiratory Rate 16 Blood Pressure 140/64 Pulse Oximetry 100 Oxygen Delivery Exam 2 Const: General: healthy appearing and no acute distress Nutritional Appearance: well nourished Orientation/consciousness: patient oriented x3 Limitations: no limitations Resp: Effort & Inspection: normal respiratory effort Auscultation: clear to auscultation bilaterally Cardio: Rate: tachycardic Rhythm: abnormal rhythm irregularly irregular GI: Auscultation: normal bowel sounds Skin: General skin exam: normal color Wounds: no wounds Neuro: General: patient oriented x3, moves all extremities, no meningeal signs, no focal motor deficits and CN's II-XI intact bilaterally Cranial nerves: Yes Nystagmus not present Speech: normal speech Extrem: General: normal to inspection and no clubbing, cyanosis or edema Psych: Mental Status: mental status grossly normal Affect: normal affect Attitude: cooperative Results Labs and Meds 06/05/24 04:36 06/05/24 04:36 Lab results: Cardiac Enzymes 06/04/24 06/04/24 06/04/24 Range/Units 14:58 18:58 22:26 AST 24 (14-36) U/L Troponin I < 0.012 0.030 D 0.040 H* D (0.000-0.034) ng/mL Coagulation 06/04/24 Range/Units 14:58 PT 13.3 (11.1-14.7) Seconds APTT 26.0 (22.3-36.8) Seconds Lipids 06/05/24 Range/Units 04:36 Triglycerides 85 (<150) mg/dL Cholesterol 264 H (0-200) mg/dL CBC 06/04/24 06/05/24 Range/Units 14:58 04:36 WBC 4.3 L 3.4 L (4.5-10.0) K/mm3 RBC 4.51 3.82 L (4.2-5.4) M/mm3 Hgb 14.1 12.0 (12.0-15.0) g/dL Hct 41.6 35.7 L (37.0-47.0) % Plt Count 178 152 (150-375) k/mm3 Lymph # (Auto) 0.41 L (0.9-3.2) K/mm3 [place] # (Auto) 0.5 (0.1-0.6) K/mm3 Eos # (Auto) 0.0 (0-0.3) K/mm3 Baso # (Auto) 0.0 (0.0-0.1) K/mm3 Comprehensive Metabolic Panel 06/04/24 06/05/24 Range/Units 14:58 04:36 Sodium 136 L 131 L (137-145) mmol/L Potassium 3.5 3.5 (3.4-5.0) mmol/L Chloride 103 102 (98-107) mmol/L Carbon Dioxide 30 28 (22-30) mmol/L BUN 11 15 (7-17) mg/dL Creatinine 1.00 0.90 (0.7-1.0) mg/dL Glucose 116 H 84 (65-110) mg/dL Calcium 9.4 9.0 (8.4-10.2) mg/dL AST 24 (14-36) U/L ALT 13 (6-35) U/L Alkaline Phosphatase 124 (38-126) U/L Total Protein 8.0 (6.3-8.2) g/dL Albumin 4.5 (3.5-5.1) g/dL Intake and Output 06/04/24 06/05/24 06/05/24 23:59 07:59 15:59 Intake Total 30.7 251.8 180 Output Total 300 Balance 30.7 -48.2 180 Intake: IV 30.7 11.8 dilTIAZem 100 MG/100 ML 100 mg 30.7 11.8 In 100 ml @ 5 MG/HR 5 mls/hr IV CONT .Q20H STA Rx#:[id number] Oral 240 180 Output: Urine 300 Patient Weight 06/05/24 23:59 Weight 54.8 kg
--- NOTE | 2024-06-05 15:39 | P.DS_ITS ---
DS: Admitting Diagnosis Discharge Date 06/05/24 Admitting Diagnosis (1) Atrial fibrillation with rapid ventricular response: Code(s): I48.91 - Unspecified atrial fibrillation Status: Acute (2) Hypertension: Code(s): I10 - Essential (primary) hypertension Status: Acute DS: Discharge Diagnosis Discharge Diagnosis (1) Atrial fibrillation with rapid ventricular response: Code(s): I48.91 - Unspecified atrial fibrillation Status: Acute (2) Hypertension: Code(s): I10 - Essential (primary) hypertension Status: Acute DS: Summary Hospital Course Hospital Course: This is a very pleasant 78-year-old female with history of hypertension, osteopenia, and inflammatory arthritis who presented to the emergency department via private vehicle accompanied by her for evaluation of dizziness and fast heart rate. The patient provides the following history but seems to have some short-term memory loss and her provides additional information with the patient's permission. Today while doing nothing in particular around the ho me she told her that she was feeling quite dizzy and a bit sick to her stomach. Her heart rate was reportedly racing and she was brought in for evaluation. While sitting down she feels just fine she has no complaints at the time my evaluation. She denies syncope, near syncope, fever, chills, sweats, recent cold and flu symptoms, chest pain, pleuritic pain, shortness of breath, cough, vomiting, diarrhea, and dysuria. She also denies vertigo, visual changes, facial droop, difficulty speaking and swallowing, focal weakness, paresthesias. No history of thyroid disease. She denies significant alcohol and caffeine use. In the ED: She was afebrile on arrival with stable blood pressures. Heart rate has been as high as the mid 140s and she is in atrial fibrillation which is reportedly new diagnosis for her. Labs were significant for WBC count of 4.3, sodium 136, troponin less than 0.012. EKG showed rapid atrial fibrillation with ST deviation in the inferior and lateral leads. She was started on a diltiazem drip in the emergency department with improvement in her rates and she is being admitted in this setting for close monitoring and further workup. The following med issues have been addressed during hospitalization New onset AFib RVR The patient presented to the emergency department for evaluation of dizziness She was found to be in rapid atrial fibrillation on arrival which may very well be the cause of her dizziness. diltiazem drip with improvement in her rate. Echocardiogram and TSH are pending. CHADS2 >2) oral anticoagulation is indicated Start Eliquis. Appreciate broadcast meteorologist consultation Continue metoprolol 25 mg daily p.o., broadcast meteorologist were provide patient with ambulator monitor upon discharge Batting Machine Operator will follow-up patient of patient Elevated troponin Troponin is trending up, Possible demand ischemia due to AFib RVR T-wave inverted inferior lead, lead 3 to 4 Start aspirin 325 mg once and 81 mg daily echocardiogram 1. Left ventricular chamber dimension is normal. 2. Left ventricular systolic function is normal, estimated at 60-65%. 3. There is mildly increased left ventricular wall thickness. 4. The left ventricular diastolic function is grade I diastolic dysfunction. 5. Right ventricular systolic function is normal. 6. Left atrial chamber dimension is mildly enlarged. 7. Right atrial chamber dimension is mildly enlarged. 8. There is mild mitral valve regurgitation. 9. There is mild tricuspid valve regurgitation. Batting Machine Operator will follow-up patient out patient Essential hypertension Blood pressures stable. Continue losartan 100 mg daily p.o. Hyponatremia Possible due to SIADH due to AFib RVR, patient is not on diuretic medication Continue losartan 100 mg daily p.o. metoprolol 25 mg daily p.o. Sodium 131 Follow-up in the primary care doctor in 1 week Time Spent with Patient Time attestation: Total time spent providing and/or coordinating discharge services: Exam Narrative: GENERAL: Pleasant, in no acute distress. Well-nourished. - EYES: EOMI. Anicteric. - HENT: Moist mucous membranes. - LUNGS: Clear to auscultation bilateral ly, no wheezing, rhonchi, or rales. - CARDIOVASCULAR: Regular rate and rhyth m. No murmur. No JVD. - ABDOMEN: Soft, non-tender and non-dist ended. No palpable masses. - EXTREMITIES: No edema. Peripheral puls es 2+. Non-tender. - NEUROLOGIC: No focal neurological defi cits. CN II-XII grossly intact. - PSYCHIATRIC: Awake, Alert and oriented x 3. Appropriate mood and affect. - SKIN: No rashes or lesions. Warm. - LYMPH: No cervical lymphadenopathy. DS: Data Data Completed and Pending Labs on day of discharge: Labs from last 24 hours 06/05/24 06/04/2406/04/24 04:36 22:26 18:58 WBC 3.4 L RBC 3.82 L Hgb 12.0 Hct 35.7 L MCV 93.5 MCH 31.4 MCHC 33.6 RDW 13.2 Plt Count 152 MPV 11.0 H Sodium 131 L Potassium 3.5 Chloride 102 Carbon Dioxide 28 Anion Gap 1 L BUN 15 Creatinine 0.90 Estim Creat Clear Calc 40 Estimated GFR > 60 Glucose 84 Calcium 9.0 Magnesium 2.0 Troponin I 0.040 H* D 0.030 D Triglycerides 85 Cholesterol 264 H LDL Cholesterol Direct 139 HDL Direct 64 TSH (Reflex) 0.798 Discharge Plan Discharge Attending physician on discharge: Beau Mccormack Consulting providers: Homa Lang Discharging Clinician: Beau Mccormack Anticipated Discharge Date/Time: 06/05/24 15:39 Patient Disposition: Home, Self-Care Activity: as tolerated Diet: as tolerated and heart healthy Patient Instructions: Antibiotic Form Patient Language: [place] Stand Alone Forms: General Discharge Information Follow-up/Referrals: Homa Lang MD [Physician] - (Patient needs to see broadcast meteorologist at scheduled appointment) UNKNOWN,DOCTOR [Primary Care Provider] - (Patient needs to see primary care doctor in 1 week) Discharge Medications: New aspirin [Children's Aspirin] 81 mg Tablet,Chewable 81 mg PO DAILY@0800 Qty: 30 0RF Eliquis 5 mg tablet 5 mg PO BID Qty: 60 1RF Continued gabapentin 600 mg tablet 600 mg PO HS losartan 100 mg tablet 100 mg PO DAILY metoprolol succinate 25 mg tablet extended release 24 hr 25 mg PO DAILY gabapentin 300 mg capsule 300 mg PO DAILY Date of admission: 06/04/24 16:15 Primary Care Provider: UNKNOWN,DOCTOR Admitting Provider: Lilly Son Attending physician on admission: Lilly Son Condition: Improved
--- NOTE | 2024-06-05 23:12 | ECHO_ITS ---
Patient Info Name: Blessing Carrington Age: 78 years : 1945 Gender: Female Ht: 64 in Wt: 122 lbs BSA: 1.58 m2 HR: 64 bpm BP: 116 / 48 mmHg Heart Rhythm: Sinus Rhythm Technical Quality: Fair Exam Date: 06/05/2024 10:13 AM Exam Location: Echo Lab Patient Status: Outpatient Admit Date: 06/04/2024 Staff Ordering Physician: Gwendolyn Dodd PA-C Major Donor Coordinator: Juan Francisco Aguilar RDCS Attending Provider: Lilly Son MD Referring Physician: Yousif IZQUIERDO; Exam Type: CA echo doppler color flow Study Info Indications - New on set atrial Fibrillation Complete two-dimensional, color flow and Doppler transthoracic echocardiogram is performed. Summary 1. Left ventricular chamber dimension is normal. 2. Left ventricular systolic function is normal, estimated at 60-65%. 3. There is mildly increased left ventricular wall thickness. 4. The left ventricular diastolic function is grade I diastolic dysfunction. 5. Right ventricular systolic function is normal. 6. Left atrial chamber dimension is mildly enlarged. 7. Right atrial chamber dimension is mildly enlarged. 8. There is mild mitral valve regurgitation. 9. There is mild tricuspid valve regurgitation. Left Ventricle Left ventricular chamber dimension is normal. Left ventricular systolic function is normal, estimated at 60-65%. There is mildly increased left ventricular wall thickness. The left ventricular diastolic function is grade I diastolic dysfunction. Right Ventricle Right ventricular chamber dimension is normal. Right ventricular systolic function is normal. Left Atria Left atrial chamber dimension is mildly enlarged. Right Atria Right atrial chamber dimension is mildly enlarged. Atrial Septum Intact interatrial septum visualized by color flow imaging. Aortic Valve The aortic valve is trileaflet. There is mild aortic valve sclerosis. There is no aortic valve stenosis. There is no aortic valve regurgitation. Pulmonic Valve The pulmonic valve is not well visualized. There is trace pulmonic regurgitation. Mitral Valve There is mild mitral valve regurgitation. Tricuspid Valve There is mild tricuspid valve regurgitation. Pericardium/Pleural The pericardium appears epicardial fat pad. There is no pericardial effusion. Inferior Vena Cava Normal inferior vena cava with >50% collapse upon inspiration consistent with normal right atrial pressure, 3 mmHg. Aorta The aortic root size at the sinus of Valsalva is normal. Left Ventricular Outflow Tract Name Value Normal LVOT 2D LVOT Diameter 1.9 cm LVOT Doppler LVOT Peak Gradient 5 mmHg LVOT Mean Gradient 2 mmHg LVOT VTI 18 cm LVOT VTI/AV VTI Ratio 0.8 LVOT Stroke Volume 51 ml LVOT CO 3.4 l/min LVOT CI 2.1 l/min/m2 Pulmonic Valve Name Value Normal PV Doppler PV Peak Gradient 3 mmHg Mitral Valve Name Value Normal MV Doppler MV Decel Mcintosh 407 cm/s2 MV PHT 60 ms MV Area (PHT) 3.7 cm2 4.0-5.0 MV Diastolic Function MV E Peak Velocity 84 cm/s MV A Peak Velocity 46 cm/s MV E/A 1.8 MV Decel Time 206 ms Tricuspid Valve Name Value Normal TV Regurgitation Doppler TR Peak Velocity 245 cm/s TR Peak Gradient 24 mmHg Estimated PAP/RSVP RA Pressure 3 mmHg <=5 PA Systolic Pressure 27 mmHg <36 RV Systolic Pressure 27 mmHg <36 Aorta Name Value Normal Ascending Aorta Ao Root Diameter (MM) 1.9 cm Ao Root Diam Index (MM) 1.2 cm/m2 Aortic Valve Name Value Normal AV Doppler AV Peak Velocity 123 cm/s AV Peak Gradient 6 mmHg AV Mean Gradient 3 mmHg AV VTI 24 cm AV Area (Cont Eq VTI) 2.1 cm2 >=3.0 AV Area (Cont Eq Sohan) 2.4 cm2 AV Regurgitation 2D LVOT Area 2.7 cm2 Ventricles Name Value Normal LV Dimensions 2D/MM IVS Diastolic Thickness (2D) 0.7 cm 0.6-1.0 IVS Diastole Thickness (MM) 0.8 cm 0.6-0.9 LVID Diastole (2D) 4.4 cm 3.8-5.2 LVID Diastole (MM) 4.6 cm 3.8-5.2 LVIW Diastolic Thickness (2D) 0.7 cm 0.6-0.9 LVIW Diastolic Thickness (MM) 0.8 cm 0.6-0.9 LVID Systole (2D) 2.7 cm 2.2-3.5 LVID Systole (MM) 3.1 cm 2.2-3.5 LVOT Diameter 1.9 cm LV Mass (2D Cubed) 86.43 g 67.00-162.00 LV Mass Index (2D Cubed) 55 g/m2 43-95 Relative Wall Thickness (2D) 0.30 LV Mass (MM Cubed) 115.15 g 67.00-162.00 LV Mass Index (MM Cubed) 73 g/m2 43-95 Relative Wall Thickness (MM) 0.35 LV Fractional Shortening/Ejection Fraction 2D/MM LV Fractional Shortening (2D) 39 % 27-45 LV Fractional Shortening (MM) 33 % 27-45 LV EF (MM Teicholz) 62 % 54-74 LV EF (2D Teicholz) 70 % 54-74 LV Diastolic Volume (4C MOD) 50 ml LV EF (4C MOD) 60 % LV Diastolic Volume (2C MOD) 44 ml LV EF (2C MOD) 57 % LV Diastolic Volume (BP MOD) 49 ml 46-106 LV Diastolic Volume Index (BP MOD) 31 ml/m2 29-61 LV Systolic Volume (BP MOD) 20 ml 14-42 LV Systolic Volume Index (BP MOD) 13 ml/m2 8-24 LV EF (BP MOD) 60 % 54-74 LV Diastolic Length (4C) 6.9 cm LV Systolic Length (4C) 5.8 cm LV Stroke Volume (4C MOD) 30 ml Atria Name Value Normal LA Dimensions LA Dimension (MM) 4.6 cm 2.7-3.8 LA Volume (4C A-L) 48 ml LA Volume (BP A-L) 46 ml RA Dimensions RA Area (4C) 12.9 cm2 <=18.0 Report Signatures
== END 2024-06-05 18:00 | disposition home or self-care (01) ==
LOC: ANHED 16:16 → ANHIMU 16:59
PROVIDERS: Physician Assistant; Admitting Provider Internal Medicine; Emergency Provider Emergency Medicine; Visit Provider Hospitalist
DX: I48.91 Unspecified atrial fibrillation (principal); R79.89 Other specified abnormal findings of blood chemistry; I10 Essential (primary) hypertension; E87.1 Hypo-osmolality and hyponatremia; M85.80 Other specified disorders of bone density and structure, unspecified site; M19.90 Unspecified osteoarthritis, unspecified site; Z79.899 Other long term (current) drug therapy
CPT/HCPCS: 36415; 70450; 71045; 80048; 80053; 80061; 83735; 84443; 84484; 85025; 85027; 85610; 85730; 93005; 93306; 96365; 96366; 96375; 99285; A9270; G0378

== ENCOUNTER 2025-03-24 19:21 | Emergency (ER) | payer MEDICARE, SELFPAY ==
[2025-03-24 19:37] VITALS: BP 147/61; PULSE 65; RESP 14; TEMP 36.6; O2SAT 100
--- OUTSIDE RECORDS SUMMARY | 2025-03-24 20:28 | XMS_ITS | Clinical Summary ---
Author Organization [facility] Address [address] [place] [id number] Care Team Providers Care Technical Assistance Consultant Name Role Phone Mehreen Panchal NP Primary Care Provider [phone] Allergies No known active allergies Medications mv,calcium,min/iron /folic/vitK (MULTI FOR HER ORAL) Active aspirin 81 mg chewable tablet Take 1 tablet (81 mg total) by mouth daily 30 tablet 5 08/29/19 26 Active metoprolol XL (TOPROL-XL) 25 mg extended release tabletIndications:H ypertension, essential Take 1 tablet (25 mg total) by mouth every morning 30 tablet 5 08/29/19 26 Active losartan (COZAAR) 100 mg tablet Take 1 tablet (100 mg total) by mouth daily 30 tablet 5 08/29/19 26 Active gabapentin (NEURONTIN) 600 mg tabletIndications:N europathy TAKE 1 TABLET(600 MG) BY MOUTH EVERY NIGHT 30 tablet 5 Active atorvastatin (LIPITOR) 40 mg tabletIndications:M ixed hyperlipidemia TAKE 1 TABLET(40 MG) BY MOUTH EVERY NIGHT 30 tablet 5 Active ezetimibe (ZETIA) 10 mg tablet Take 1 tablet (10 mg total) by mouth daily 90 tablet 1 5 Active Eliquis 5 mg tablet Take 1 tablet (5 mg total) by mouth 2 (two) times a day 60 tablet 5 01/22/20 26 Active Active Problems Problem Noted Date Diagnosed Date Coronary artery disease due to calcified coronar y lesion 01/03/2025 Assessment & Plan (01/03/2025 1:44 PM CDT): Newly diagnosed severe coronary calcification of three-vessel including the left main is noted on her CT scan. Nuclear stress testing showed mild positive ECG without significant reperfusion abnormalities and she is asymptomatic. Aggressive risk reduction recommended with LDL goal less than 70. Patient is tolerating the combination of aspirin and Eliquis without bleeding and it is reasonable to continue. Mild concentric left ventricular hypertrophy (LV H) 01/03/2025 Assessment & Plan (01/03/2025 1:44 PM CDT): Stable and asymptomatic and an indication for implementation of the DASH diet to try to further control her blood pressure. Pulmonary nodules 12/10/2024 Assessment & Plan (12/12/2024 8:51 AM CDT): New findings on CT chest, reviewed CT chest results dated 11/20/24 with patient and Referral made to pulmonology for further evaluation and management T12 compression fracture 12/10/2024 Assessment & Plan (12/12/2024 8:53 AM CDT): New diagnosis Reviewed bone density results dated 11/20/24 with patient as well as pharmaceutical treatment options, expressed interest, would like to research options first before making a decision Recommended 1200 mg of dietary calcium daily (if taking a supplement, no more than 1000 mg daily in 2 divided doses, always with a meal), vitamin D3 supplement 800-1000 international units daily with a meal, weight-bearing exercise daily most days of the week with a goal of at least 150 minutes or more of exercise weekly, avoidance of heavy alcohol consumption, and being mindful of fall risks (throw rugs, inadequate lighting, slippery or wet surfaces, etc.). Ordered MRI lumbar spine Not immune to hepatitis B virus 09/04/2024 Assessment & Plan (12/10/2024 2:04 PM CDT): Discussed screening/vaccination in depth and patient understands all risk and benefits associated with proposed therapies and currently declines, has been encouraged to call if changes mind. Other thrombophilia 08/28/2024 Assessment & Plan (09/04/2024 3:38 PM CDT): Current status unknown Will recheck Atrial fibrillation 07/13/2024 Assessment & Plan (01/03/2025 1:42 PM CDT): Single episode of atrial fibrillation without recurrence. Patient stable without bleeding on Eliquis and the risks were discussed with the patient and her . She will eliminate the extra caffeine she is getting through the T in her diet and DASH diet was recommended for control of her blood pressure. Assessment & Plan (09/04/2024 3:37 PM CDT): Controlled Continued on metoprolol XL, low-dose aspirin, and Eliquis Encouraged follow-up with Cardiology as recommended Assessment & Plan (07/13/2024 3:24 PM SALESPERSON HOSIERY): Controlled Continued on metoprolol XL, low-dose aspirin, and Eliquis Encouraged follow-up with Cardiology as recommended Colon cancer screening 09/30/2021 Assessment & Plan (09/04/2024 3:36 PM CDT): Agreed to have Cologuard done, previously declined Assessment & Plan (10/30/2023 9:08 AM CDT): Discussed screening/vaccination in depth and patient understands all risk and benefits associated with proposed therapies and currently declines, has been encouraged to call if changes mind Assessment & Plan (04/09/2023 10:00 AM CDT): Declined colonoscopy/Cologuard Assessment & Plan (10/03/2022 2:02 PM CDT): Declined colonoscopy and Cologuard. Assessment & Plan (03/31/2022 1:18 PM CDT): Has Cologuard screening kit, encouraged to complete. Assessment & Plan (09/30/2021 1:37 PM CDT): Declined screening colonoscopy, agreed to Cologuard, test ordered. Low bone mass 07/15/2021 Assessment & Plan (12/12/2024 8:52 AM CDT): Reviewed bone density results dated 11/20/24 with patient as well as pharmaceutical treatment options, expressed interest, would like to research options first before making a decision Recommended 1200 mg of dietary calcium daily (if taking a supplement, no more than 1000 mg daily in 2 divided doses, always with a meal), vitamin D3 supplement 800-1000 international units daily with a meal, weight-bearing exercise daily most days of the week with a goal of at least 150 minutes or more of exercise weekly, avoidance of heavy alcohol consumption, and being mindful of fall risks (throw rugs, inadequate lighting, slippery or wet surfaces, etc.). Assessment & Plan (09/04/2024 3:35 PM CDT): Uncontrolled Agreed to bone density test, previously declined, also has osteoporosis left femur Recommended 1200 mg of dietary calcium daily (if taking a supplement, no more than 1000 mg daily in 2 divided doses, always with a meal), vitamin D3 supplement 800-1000 international units daily with a meal, weight-bearing exercise daily most days of the week with a goal of at least 150 minutes or more of exercise weekly, avoidance of heavy alcohol consumption, and being mindful of fall risks (throw rugs, inadequate lighting, slippery or wet surfaces, etc.). Assessment & Plan (07/13/2024 3:22 PM SALESPERSON HOSIERY): Uncontrolled Declined bone density test and medication Recommended 1200 mg of dietary calcium daily (if taking a supplement, no more than 1000 mg daily in 2 divided doses, always with a meal), vitamin D3 supplement 800-1000 international units daily with a meal, weight-bearing exercise daily most days of the week with a goal of at least 150 minutes or more of exercise weekly, avoidance of heavy alcohol consumption, and being mindful of fall risks (throw rugs, inadequate lighting, slippery or wet surfaces, etc.). Assessment & Plan (10/30/2023 9:08 AM CDT): Discussed screening/vaccination in depth and patient understands all risk and benefits associated with proposed therapies and currently declines, has been encouraged to call if changes mind Assessment & Plan (04/09/2023 9:58 AM CDT): Chronicity and stability unknown Declined bone density test Recommended treatment: 1200 mg of dietary calcium daily (if taking a supplement, no more than 1000 mg daily in 2 divided doses, always with a meal), vitamin D3 supplement 800-1000 international units daily with a meal or more if vitamin D-deficient, exercise daily most days of the week with a goal of at least 150 minutes or more of exercise weekly, avoid heavy alcohol consumption, and being mindful of fall risks (throw rugs, inadequate lighting, slippery or wet surfaces, etc.). Will monitor periodically with bone density testing, usually every 2 years. Assessment & Plan (03/31/2022 1:16 PM CDT): Chronicity and stability unknown-declined bone density test. Encouraged to continue vitamin-D supplementation and to get adequate calcium in diet with a goal of 2950-5260 mg per day. Assessment & Plan (01/06/2022 1:09 PM CDT): Chronicity and stability unknown-ordered bone density test. Ordered vitamin-D 25 OH. Assessment & Plan (09/30/2021 1:48 PM CDT): Bone density test ordered previously, encouraged to call to schedule appointment to have test done. Lumbar spondylosis 07/15/2021 Assessment & Plan (04/09/2023 9:58 AM CDT): Chronic, stability unknown, currently asymptomatic Will monitor for symptoms Assessment & Plan (03/31/2022 1:17 PM CDT): Chronic, stability unknown, not on medication for pain-will monitor for worsening pain/debility, can refer for further testing if/when interested. History of multiple pulmonary nodules 07/15/2021 Overview (07/15/2021): Right upper lobe and right middle lobe, noted on CTA dated 3/21/19, recommended 6 months follow-up Assessment & Plan (09/04/2024 3:35 PM CDT): Ordered CT chest, agreed to have test done, previously declined Assessment & Plan (10/30/2023 9:07 AM CDT): Discussed screening/vaccination in depth and patient understands all risk and benefits associated with proposed therapies and currently declines, has been encouraged to call if changes mind Assessment & Plan (04/09/2023 10:00 AM CDT): Declined CT chest Assessment & Plan (10/03/2022 2:01 PM CDT): Declined CT of chest. Assessment & Plan (03/31/2022 1:09 PM CDT): CT of chest recommended due to history of right upper lobe and right middle lobe pulmonary nodule on CTA dated 09/07/2018, awaiting patient's decision. 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 Assessment & Plan (12/12/2024 8:51 AM CDT): New diagnosis with new diagnosis of T12 fracture Reviewed bone density results dated 11/20/24 with patient as well as pharmaceutical treatment options, expressed interest, would like to research options first before making a decision Recommended 1200 mg of dietary calcium daily (if taking a supplement, no more than 1000 mg daily in 2 divided doses, always with a meal), vitamin D3 supplement 800-1000 international units daily with a meal, weight-bearing exercise daily most days of the week with a goal of at least 150 minutes or more of exercise weekly, avoidance of heavy alcohol consumption, and being mindful of fall risks (throw rugs, inadequate lighting, slippery or wet surfaces, etc.). Assessment & Plan (09/04/2024 3:35 PM CDT): Uncontrolled Agreed to bone density test, previously declined, also has osteoporosis left femur Recommended 1200 mg of dietary calcium daily (if taking a supplement, no more than 1000 mg daily in 2 divided doses, always with a meal), vitamin D3 supplement 800-1000 international units daily with a meal, weight-bearing exercise daily most days of the week with a goal of at least 150 minutes or more of exercise weekly, avoidance of heavy alcohol consumption, and being mindful of fall risks (throw rugs, inadequate lighting, slippery or wet surfaces, etc.). Assessment & Plan (07/13/2024 3:22 PM SALESPERSON HOSIERY): Uncontrolled Declined bone density test and medication Recommended 1200 mg of dietary calcium daily (if taking a supplement, no more than 1000 mg daily in 2 divided doses, always with a meal), vitamin D3 supplement 800-1000 international units daily with a meal, weight-bearing exercise daily most days of the week with a goal of at least 150 minutes or more of exercise weekly, avoidance of heavy alcohol consumption, and being mindful of fall risks (throw rugs, inadequate lighting, slippery or wet surfaces, etc.). Assessment & Plan (10/30/2023 9:08 AM CDT): Discussed screening/vaccination in depth and patient understands all risk and benefits associated with proposed therapies and currently declines, has been encouraged to call if changes mind Assessment & Plan (04/09/2023 9:59 AM CDT): Chronicity and stability unknown Declined bone density test Recommended treatment: 1200 mg of dietary calcium daily (if taking a supplement, no more than 1000 mg daily in 2 divided doses, always with a meal), vitamin D3 supplement 800-1000 international units daily with a meal or more if vitamin D-deficient, exercise daily most days of the week with a goal of at least 150 minutes or more of exercise weekly, avoid heavy alcohol consumption, and being mindful of fall risks (throw rugs, inadequate lighting, slippery or wet surfaces, etc.). Will monitor periodically with bone density testing, usually every 2 years. Assessment & Plan (10/03/2022 2:02 PM CDT): Chronic, stability unknown-declined bone density test. Encouraged to get vitamin-D level drawn previously ordered. Assessment & Plan (03/31/2022 1:16 PM CDT): Chronicity and stability unknown-declined bone density test. Encouraged to continue vitamin-D supplementation and to get adequate calcium in diet with a goal of 0713-8117 mg per day. Assessment & Plan (01/06/2022 1:10 PM CDT): Chronicity and stability unknown-ordered bone density test. Ordered vitamin D 25 OH. Assessment & Plan (09/30/2021 1:55 PM CDT): Chronic, stability unknown, ordered bone density test previously-encouraged to schedule bone density test. Advised to continue to take vitamin-D3 up to 2000 international units daily with a meal and to ensure adequate calcium intake, preferably 1500 mg per day, no more than 1000 mg/day in supplemental form. Hiatal hernia 07/15/2021 Assessment & Plan (04/09/2023 9:52 AM CDT): Chronicity and stability unknown, currently asymptomatic Monitor for symptoms Assessment & Plan (03/31/2022 1:17 PM CDT): Chronic, currently asymptomatic-will continue to monitor for presence of symptoms. Mixed hyperlipidemia 04/20/2021 Assessment & Plan (01/03/2025 1:46 PM CDT): LDL cholesterol is markedly improved but not at goal. In light of coronary artery disease identified as discussed here in she should target an LDL goal of preferably less than 70 in view of the severity of coronary calcification. She will start on Zetia 10 mg daily. Patient and instructed on low cholesterol low saturated fat diet and she will continue activities as tolerated. Repeat lipid profile recommended for 1 month and a follow-up in 6 weeks. Assessment & Plan (09/04/2024 3:34 PM CDT): Controlled Continued on atorvastatin 40 mg daily Assessment & Plan (07/13/2024 3:19 PM SALESPERSON HOSIERY): Controlled with medication, however no longer taking Encouraged low fat, low cholesterol diet, high in fiber Assessment & Plan (10/30/2023 9:09 AM CDT): Chronic, controlled with medication, however no longer taking Declined lab work at this time Encourage low fat, low cholesterol diet, high in fiber Assessment & Plan (04/09/2023 9:59 AM CDT): Chronic, controlled with medication Continued on atorvastatin, refills sent to pharmacy per patient request Ordered lipid panel Assessment & Plan (10/03/2022 2:00 PM CDT): Chronic, stable, controlled with medication-continued on atorvastatin. Encouraged to get lipid panel done, previously ordered. Refills for atorvastatin sent to pharmacy per patient request. Assessment & Plan (03/31/2022 1:16 PM CDT): Chronicity unknown, improved/controlled at last check-refills for atorvastatin sent to pharmacy per patient request. Encouraged to get lipid panel done previously ordered. Assessment & Plan (01/06/2022 1:07 PM CDT): Chronic, significantly improved on a statin-continued on atorvastatin 10 mg once daily. Repeat lipid panel prior to next visit. Assessment & Plan (10/07/2021 11:05 AM CDT): Chronic, slightly worsened, uncontrolled-started on atorvastatin. Referred to Cardiology for further evaluation and management due to atypical chest pain/discomfort. Ordered repeat lipid panel in 3-4 months. Assessment & Plan (09/30/2021 1:57 PM CDT): Chronicity and stability unknown, recommended a diet low in saturated fat, minimizing beef, pork, and whole fat dairy, choosing white meat chicken/turkey and fish over red meat and dark meat options and increasing dietary fiber (fruits, vegetables, whole grains, and legumes) and vegetable sources of PRO such as quinoa, legumes (beans, peas, chickpeas, lentils, soybeans, and peanuts) and nuts (sparingly). Recommended daily exercise. Discussed pharmacological treatment options. Ordered lipid panel. Encounter for screening mamm ogram for malignant neoplasm of breast 03/24/2021 Assessment & Plan (09/04/2024 3:36 PM CDT): Agreed to have mammogram done, previously declined Assessment & Plan (10/30/2023 9:07 AM CDT): Discussed screening/vaccination in depth and patient understands all risk and benefits associated with proposed therapies and currently declines, has been encouraged to call if changes mind Assessment & Plan (04/09/2023 10:00 AM CDT): Declined screening mammogram Assessment & Plan (10/03/2022 2:03 PM CDT): Declined screening mammogram. Assessment & Plan (03/31/2022 1:11 PM CDT): Ordered screening mammogram, due after 04/28/2021. Assessment & Plan (01/06/2022 1:06 PM CDT): Screening mammogram ordered. Assessment & Plan (03/24/2021 6:28 AM CDT): Screening mammogram ordered. Menopause 03/24/2021 Assessment & Plan (04/09/2023 9:58 AM CDT): Asymptomatic Declined bone density test Assessment & Plan (03/31/2022 1:12 PM CDT): Recommended bone density test, declined. Assessment & Plan (01/06/2022 1:06 PM CDT): Bone density test ordered. Assessment & Plan (03/24/2021 6:32 AM CDT): Chronic-ordered bone density test, no known history of osteopenia/porosis. Need for vaccination 03/24/2021 Assessment & Plan (09/04/2024 3:37 PM CDT): Considering the Shingrix vaccination series, discussed at office visit today, previously declined States is not interested in Tdap Assessment & Plan (10/30/2023 9:07 AM CDT): Discussed screening/vaccination in depth and patient understands all risk and benefits associated with proposed therapies and currently declines, has been encouraged to call if changes mind Assessment & Plan (04/09/2023 10:01 AM CDT): Declined recommended vaccinations for seasonal influenza vaccine received today Assessment & Plan (10/03/2022 1:59 PM CDT): Declines all recommended vaccinations. Assessment & Plan (03/31/2022 1:12 PM CDT): Seasonal influenza vaccine given. Assessment & Plan (09/30/2021 1:53 PM CDT): Discussed recommended immunizations with patient. Assessment & Plan (03/24/2021 6:30 AM CDT): Influenza vaccine given. Screening for thyroid disorder 03/24/2021 Assessment & Plan (03/24/2021 6:31 AM CDT): TSH with reflex to free T4 ordered, denies a known history of thyroid problems. Encounter for Medicare annual wellness exam 10/2020 Assessment & Plan (09/04/2024 3:33 PM CDT): Reviewed past and current medical history, surgical history, social history, family history, current medications, and allergies. The chart was updated to identify any changes in these areas. Assessment & Plan (04/09/2023 9:52 AM CDT): Reviewed past and current medical history, surgical history, social history, family history, current medications, and allergies. The chart was updated to identify any changes in these areas. A ROS and PE were performed. Medications and labs were ordered. Discussed screening colonoscopy, screening mammogram, monthly breast self-exams, bone density testing, and recommended immunizations. Patient will follow-up in 6 months for further evaluation and management or sooner if needed. Assessment & Plan (03/31/2022 1:14 PM CDT): Reviewed past and current medical history, surgical history, social history, family history, current medications, and allergies. A ROS and PE were performed. Medications and labs were ordered and referrals were made. Discussed screening colonoscopy, screening mammogram, monthly breast self-exams, bone density testing, and recommended immunizations. Patient will follow-up in months for further evaluation and management or sooner if needed. Assessment & Plan (03/24/2021 6:28 AM CDT): Reviewed past and current medical history, surgical history, social history, family history, current medications, and allergies. A ROS and PE were performed. Medications and labs were ordered and referrals were made. Discussed screening colonoscopy, screening mammogram, monthly breast self-exams, bone density testing, and recommended immunizations. Patient will follow-up in 2 weeks if no improvement in symptoms, 6 months for routine visit, and one year for Medicare Annual Wellness Visit. Hypertension, essential 03/23/2021 Assessment & Plan (01/03/2025 1:40 PM CDT): Chronic hypertension with mild LVH on echo and grade 1 diastolic dysfunction asymptomatic and blood pressure has borderline control at this time. Patient instructed on the dash diet and will continue to monitor the blood pressure. Assessment & Plan (12/12/2024 8:47 AM CDT): Controlled Continued on metoprolol XL 25 mg daily and losartan 100 mg daily Assessment & Plan (09/04/2024 3:33 PM CDT): Uncontrolled, states was elevated last week when she saw her network solutions architect and no changes were made to medication Continued on metoprolol XL 25 mg daily and losartan 100 mg daily Advised to check blood pressure daily at home at different times of the day and give update in 7-10 days, states never as high at home as was in office today Assessment & Plan (07/13/2024 3:19 PM SALESPERSON HOSIERY): Controlled Continued on metoprolol XL 25 mg daily and losartan 100 mg daily Assessment & Plan (10/30/2023 9:06 AM CDT): Chronic, controlled on medication Continued on metoprolol and losartan Encouraged to monitor blood pressure periodically at home for stability Assessment & Plan (04/09/2023 9:53 AM CDT): Chronic, uncontrolled at today's visit, however states controlled at home, on medication Continued on metoprolol and losartan, refills for metoprolol sent to pharmacy per patient request Encouraged to monitor blood pressure at home and to notify office average reading Ordered CMP Assessment & Plan (10/03/2022 2:00 PM CDT): Chronic, stable, uncontrolled on medication, with systolic 142, diastolic 72-continued on metoprolol and losartan, refills for metoprolol sent to pharmacy per patient request. Encouraged to get CMP done, previously ordered. Assessment & Plan (03/31/2022 1:10 PM CDT): Chronic, uncontrolled, with elevated systolic, on medication, appears nervous during visit-continued on metoprolol XL and losartan daily. Advised to follow-up with network solutions architect as recommended. Assessment & Plan (01/06/2022 1:06 PM CDT): Chronic, worsened since last visit, continues on medication-continued on metoprolol XL 25 mg and losartan 25 mg once daily. Referral made to Cardiology due to irregular heartbeat. Assessment & Plan (10/07/2021 11:04 AM CDT): Chronic, improved, uncontrolled, started on additional medication 1 week ago- will continue to monitor, continued on metoprolol XL 25 mg once daily and losartan 25 mg once daily. CMP ordered to be done in 3-4 months. Assessment & Plan (09/30/2021 1:48 PM CDT): Chronic, worsened/uncontrolled, on metoprolol 25 mg once daily (HR on recheck 62 beats/minute)-recommended starting losartan 25 mg 1 daily and continuing metoprolol 25 mg once daily. Follow-up in one week for blood pressure check. Assessment & Plan (03/24/2021 6:32 AM CDT): Chronic, uncontrolled, however states she had not taken her blood pressure medication for > 24 hours prior to her visit-encouraged to take metoprolol XL at the same time every day and to monitor blood pressure at home with a goal of < 140/90. CMP ordered. Neuropathy 03/23/2021 Assessment & Plan (09/04/2024 1:33 PM CDT): Controlled Continued on gabapentin Assessment & Plan (10/30/2023 9:06 AM CDT): Chronic, stable, controlled without medication, no longer taking gabapentin Advised to resume gabapentin if symptom worsens Assessment & Plan (04/09/2023 9:59 AM CDT): Chronic, stable, controlled with medication Continued on gabapentin, refills sent to pharmacy per patient request Assessment & Plan (10/03/2022 2:00 PM CDT): Chronic, stable, controlled with medication-continued on gabapentin, refills sent to pharmacy per patient request. Assessment & Plan (03/31/2022 1:10 PM CDT): Chronic, stable, controlled with medication-continued on gabapentin 600 mg HS. Assessment & Plan (10/07/2021 11:05 AM CDT): Chronic, improved with dosage adjustment of medication-continued on gabapentin 600 mg in the PM. Assessment & Plan (09/30/2021 1:54 PM CDT): Chronic, stable, uncontrolled with adjustment in medication from 300 mg of gabapentin at bedtime to 400 mg of gabapentin at bedtime-increased gabapentin to 600 mg at bedtime. Can consider dosing BID-TID in the future, however explained may cause sedation. Assessment & Plan (03/24/2021 6:31 AM CDT): Chronic, uncontrolled on medication-increase gabapentin from 300 mg HS to 400 mg HS, prescription sent to pharmacy. Also, ordered a B12 level. Resolved Problems Problem Noted Date Diagnosed Date Resolved Date Hyponatremia 07/13/2024 09/04/2024 Assessment & Plan (07/13/2024 3:26 PM [employer]): Uncontrolled Will monitor Encounter for hepatitis C sc reening test for low risk patient 03/24/2021 07/15/2021 Assessment & Plan (03/24/2021 6:26 AM CDT): Hepatitis C antibody test ordered. Atypical chest pain 03/24/2021 03/30/20 Assessment & Plan (10/07/2021 11:03 AM CDT): Recent onset, stable, declined referral suggested last week to Cardiology for further evaluation and management-again, recommended referral to Cardiology for further evaluation and management, especially with history of significantly elevated lipids, in agreement, referral made. Assessment & Plan (09/30/2021 9:00 AM CDT): Chronic, improved per patient, affecting a smaller area, denied cardiology evaluation previously-advised cardiology evaluation today due to persistent symptoms, again declines despite elevated blood pressure at initial visit and today's visit and findings of significantly elevated lipids. Instructed to go to ER for chest pain, chest tightness, palpitations, shortness of breath, back pain, abdominal pain, nausea, vomiting, and or diaphoresis. Assessment & Plan (03/24/2021 6:26 AM CDT): Acute, stable, non-exertional, describes as a burning sensation, however denies heartburn, reflux, indigestion, abdominal pain/bloating, chest pain/tightness, palpitations shortness of breath, wheezing, recent cough/upper respiratory tract infection, or an injury preceding the onset of her symptom-offered referral to cardiology and chest xray, declined, will get a screening mammogram. Discussed a trial of Pepcid AC one tablet BID 1/2 hour before meals x 2 weeks. Encouraged a follow-up visit if symptoms are not improving for further evaluation and management, ER for worsening or new symptoms. Encounters Date Type Department Care Team Description 03/12/2025 Telephone [facility] Medical [facility] Primary Care at [address] [place] [phone] Mehreen Panchal NP 02/12/2025 Telephone [facility] Family Medicine [address] [phone] Mehreen Panchal NP 02/05/2025 11:58 AM CDT - 02/05/2025 11:59 PM CDT Hospital Encounter [facility] MRI [address] [place] [address] Compression fracture of T12 vertebra, initial encounter ([facility]) Discharge Disposition: Discharge to home or self care 02/05/2025 11:30 AM CDT Lab [facility] [address] [place] [id number] Coronary artery disease due to calcified coronary lesion 02/05/2025 10:26 AM CDT - 02/05/2025 11:59 PM CDT Hospital Encounter [facility] Medical Office [facility] [address] of the chest; Mass of right breast, unspecified quadrant; Unspecified lump in the right breast, overlapping quadrants Discharge Disposition: Discharge to home or self care 02/05/2025 10:26 AM CDT - 02/05/2025 11:59 PM CDT Hospital Encounter [facility] Medical Office Bl [address] [place] [address] of the chest; Mass of right breast, unspecified quadrant; Unspecified lump in the right breast, overlapping quadrants Discharge Disposition: Discharge to home or self care 02/05/2025 Results Follow-Up [facility] Medical [facility] Primary Care at [address] [place] [phone] Mehreen Panchal NP Diagnostic Mammogram Right W Daljit, US Breast Right Limited, MRI Thoracic Spine WO Contrast 01/18/2025 Telephone [facility] Cardiology [address] [facility] [address] [place] [address] Mary Avila NP Med Refill 01/03/2025 1:00 PM CDT Office Visit [facility] Cardiology [address] [facility] [address] [place] [address] Luis M Suarez MD Mixed hyperlipidemia (Primary Dx); Hypertension, essential; Coronary artery disease due to calcified coronary lesion; Mild concentric left ventricular hypertrophy (LVH); Paroxysmal atrial fibrillation (HCC) from Last 3 Months Immunizations Immunization Administration Dates Next Due Influenza, Quadrivalent, Hig h Dose, Preservative Free, Intrr 04/05/2023,03/30/2022,03/23/2021,03/18 Influenza, Quadrivalent, Spl it, Intramuscular 03/20/2018 Influenza, Trivalent, High D ose, Split, Preservative Free, Intramuscular 07/10/2024,03/07/2019,04/02/2018,04/14,04/19/2016 Influenza, Unspecified 03/18/2020 Pneumococcal Conjugate PCV 13 11/03/2018 Pneumococcal Conjugate Pcv20 07/10/2024 Medical History Medical History Date Comments Hypertension Neuropathy Osteopenia Constipation Rheumatoid arthritis (HCC) Ureteral calculus, left 05/07/[address] dated 05/07/19 Recurrent UTI (urinary tract infection) Closed right clavicular fracture 08/08/2022 Family History Medical History Relation Name Comments Lung cancer Father Alzheimer's disease Mother Hypertension Mother Alzheimer's disease Sister Relation Name Status Comments Father Mother Sister Social History Tobacco Use Types Packs/Day Years Used Date Smoking Tobacco: Never Tobacco Cessation:Counseling Given: Not Answered AUDIT-C Answer Date Recorded Q1: How often do you have a drink containing alc ohol? Never 09/04/2024 Average Number of Drinks Not on file 025 Frequency of Binge Drinking Not on file 08/18 PHQ-2 Answer Date Recorded PHQ-2 Total Score (If total score is 3 or more points, staff should administer the PHQ-9) 0 09/04/2024 Comments No Sex and Gender Information Value Date Recorded Sex Assigned at Not on file Legal Sex Female 3:26 AM [employer] Gender Identity Not on file Sexual Orientation Not on file Obstetrics History Para Term AB IAB SAB Ectopic Multiple Livin g Live Births 0 0 0 0 0 0 0 0 0 0 0 Last Filed Vital Signs Vital Sign Reading Time Taken Comments Blood Pressure 134/76 01/03/2025 12:42 PM CDT Pulse 62 01/03/2025 12:42 PM CDT Temperature 36.8 C (98.3 F) 12/10/2024 1:24 PM CDT Respiratory Rate 14 12/10/2024 1:24 PM CDT Oxygen Saturation 97% 01/03/2025 12:42 PM CDT Inhaled Oxygen Concentration - - Weight 55.3 kg (122 lb) 02/05/2025 10:36 AM CDT Height 165.1 cm (5' 5) 02/05/2025 10:36 AM CDT Body Mass Index 20.3 02/05/2025 10:36 AM CDT Plan of Treatment Health Maintenance Due Date Last Done Comments DTaP/Tdap/Td Vaccine (1 - Tdap) 1956 Zoster Vaccine (1 of 2) 1997 Covid-19 Vaccine (3 - 2024-2 6 season) 2025 10/07/2020, 09/09/2020 Influenza Vaccine (#1) 2025 , 04/05/2023, 03/30/2022, Additional history exists Depression Screening 09/04/2025 09/04/2024, 10/25/2023, 03/30/2022, Additional history exists Fall Risk Assessment 09/04/2025 09/04/2024, 04/05/2023, 03/30/2022, Additional history exists Well Visit 65+ 09/04/2025 09/04/2024, 03/20, 03/30/2022, Additional history exists Osteoporosis Screening-Bone Density Scan 11/20/2026 11/20/2024, 05/12/2018 Hepatitis C Screening Completed 04/18/2021 Pneumococcal vaccine 65+ Completed 07/10/2024, 10/18 Hepatitis B Screening Completed 09/04/2024 Breast Cancer Screening-Mammogram Discontinued 025, 04/28/2021 Procedures Procedure Name Priority Date/Time Associated Diagnosis Comments MRI THORACIC SPINE WO CONTRAST Schedule Routine, Read Routine (OP Routine) 02/05/2025 1:12 PM CDT Compression fracture of T12 vertebra, initial encounter (HCC) LIPID PANEL Routine 02/05/2025 11:48 AM CDT Coronary artery disease due to calcified coronary lesion LIPOPROTEIN A (LPA) Routine 02/05/2025 11:48 AM CDT Coronary artery disease due to calcified coronary lesion US BREAST RIGHT LIMITED Routine 02/05/2025 11:[address] of the chest Mass of right breast, unspecified quadrant Unspecified lump in the right breast, overlapping quadrants DIAGNOSTIC MAMMOGRAM RIGHT W DALJIT Routine 02/05/2025 10:[address] of the chest Mass of right breast, unspecified quadrant Unspecified lump in the right breast, overlapping quadrants ECG 12-LEAD Routine 01/03/2025 12:54 PM CDT Mixed hyperlipidemia DEXA AXIAL SKELETON BONE DENSITY 1 OR MORE SITES Schedule Routine, Read Routine (OP Routine) 11/20/2024 1:43 PM CDT Low bone mass Age-related osteoporosis without current pathological fracture SCREENING MAMMOGRAM BILATERAL W DALJIT Schedule Routine, Read Routine (OP Routine) 11/20/2024 1:36 PM CDT Encounter for screening mammogram for malignant neoplasm of breast HEPATITIS C ANTIBODY Routine 04/18/2021 12:06 PM CDT from Last 3 Months or Most Recently Relevant to Health Maintenance Results * MRI Thoracic Spine WO Contrast (02/05/2025 1:12 PM CDT) Anatomical Region Laterality Modality Spine N/A Magnetic Resonan ce 02/06/2025 9:13 AM CDT Narrative 02/06/2025 9:22 AM CDT EXAM DESCRIPTION: MRI THORACIC SPINE WO CONTRAST REASON FOR STUDY: Compression fracture, thoracic, T12 compression fracture Abnormal CT.T12 compression fracture TECHNIQUE: Sagittal and Axial imaging includes T1, T2, STIR and gradient echo sequences. COMPARISON: Chest CT dated 11/20/2024. FINDINGS: ALIGNMENT: Exaggerated thoracic kyphosis. VERTEBRAE: Superior endplate of T12 deformity with mild retropulsion of the posterior fragment as seen on the previous chest CT dated 11/20/2024. No associated STIR hyperintense signal. Elsewhere in the thoracic spine no acute compression fracture. The T8 vertebral body inferior margin focal STIR signal is nonspecific and presumed to be degenerative in nature. Oxvv-dr-[id number] additional endplate degenerative changes and marginal spur formation. Rounded T1 and T2 hyperintense foci including in the T10, T11 and T12 vertebral bodies in keeping with intraosseous hemangiomas. HARDWARE: Multilevel intervertebral disc height loss. CORD: The evaluation is degraded by motion and pulsation related artifact. Central thoracic cord well-circumscribed T2 hyperintense signal, foramen of the level of T7 measuring up to 1.5 mm in maximum transverse dimension (series 15, image 34). THORACIC DISCS: T8-T9: Posterior disc protrusion eccentric to the left indents the ventral thecal sac. No significant spinal canal stenosis. Thickened ligamentum flavum and facet arthropathy with mild left and no significant right neural foraminal narrowing. T10-T11: No significant disc bulge or spinal canal stenosis. Thickened ligamentum flavum and facet arthropathy with mild neural foraminal narrowing. T11-T12: Disc bulge retropulsed posterior corner of T12 fracture flattens the ventral thecal sac. Bilateral facet arthropathy. No significant spinal canal or neural foraminal narrowing. The remainder of the thoracic levels no significant disc bulge, spinal canal or neural foraminal narrowing. SOFT TISSUES: Better assessed on the dedicated chest CT dated 11/20/2024. LOWER CERVICAL: Incompletely imaged. Degenerative changes without high-grade spinal canal stenosis. UPPER LUMBAR: Incompletely imaged. Degenerative changes without high-grade spinal canal stenosis. IMPRESSION: 1. No acute compression fracture in the thoracic spine. Chronic T12 superior endplate deformity as seen on the chest CT dated 11/20/2024. 2. Bzch-yr-lizmduiu thoracic spine degenerative changes as above. No high-grade spinal canal stenosis. 3. Central thoracic cord tiny T2 hyperintense signal could be visualization central canal or a tiny syrinx. If this is a new finding for the patient then recommend complete pre and postcontrast MRI on the closed magnet. THIS IS AN ELECTRONICALLY VERIFIED FINAL REPORT 02/06/2025 9:22 AM - Electronically signed by Tyree Lang D.O. AP: AP Report ID: [id number] Reading Location: [id number] Procedure Note Tyree Lang, DO - 02/06/2025 EXAM DESCRIPTION: MRI THORACIC SPINE WO CONTRAST REASON FOR STUDY: Compression fracture, thoracic, T12 compressionfracture Abnormal CT.T12 compression fracture TECHNIQUE: Sagittal and Axial imaging includes T1, T2, STIR and gradientecho sequences. COMPARISON: Chest CT dated 11/20/2024. FINDINGS: ALIGNMENT: Exaggerated thoracic kyphosis. VERTEBRAE: Superior endplate of T12 deformity with mild retropulsion ofthe posterior fragment as seen on the previous chest CT dated 11/20/2024. No associated STIR hyperintense signal. Elsewhere in the thoracic spine noacute compression fracture. The T8 vertebral body inferior margin focal STIRsignal is nonspecific and presumed to be degenerative in nature.Eqvv-ak-zwkruwof additional endplate degenerative changes and marginal spur formation.Rounded T1 and T2 hyperintense foci including in the T10, T11 and T12 vertebralbodies in keeping with intraosseous hemangiomas. HARDWARE: Multilevel intervertebral disc height loss. CORD: The evaluation is degraded by motion and pulsation relatedartifact. Central thoracic cord well-circumscribed T2 hyperintense signal, foramenof the level of T7 measuring up to 1.5 mm in maximum transverse dimension(series 15, image 34). THORACIC DISCS: T8-T9: Posterior disc protrusion eccentric to the left indents the ventral thecal sac. No significant spinal canal stenosis. Thickened ligamentum flavum and facet arthropathy with mild left and no significant rightneural foraminal narrowing. T10-T11: No significant disc bulge or spinal canal stenosis. Thickened ligamentum flavum and facet arthropathy with mild neural foraminalnarrowing. T11-T12: Disc bulge retropulsed posterior corner of T12 fracture flattensthe ventral thecal sac. Bilateral facet arthropathy. No significant spinalcanal or neural foraminal narrowing. The remainder of the thoracic levels no significant disc bulge, spinalcanal or neural foraminal narrowing. SOFT TISSUES: Better assessed on the dedicated chest CT dated11/20/2024. LOWER CERVICAL: Incompletely imaged. Degenerative changes without high-grade spinal canal stenosis. UPPER LUMBAR: Incompletely imaged. Degenerative changes withouthigh-grade spinal canal stenosis. IMPRESSION: 1. No acute compression fracture in the thoracic spine. Chronic T12 superior endplate deformity as seen on the chest CT dated 11/20/2024. 2. Ycqg-oi-nvkyiezb thoracic spine degenerative changes as above. No high-grade spinal canal stenosis. 3. Central thoracic cord tiny T2 hyperintense signal could bevisualization central canal or a tiny syrinx. If this is a new finding for the patientthen recommend complete pre and postcontrast MRI on the closed magnet. THIS IS AN ELECTRONICALLY VERIFIED FINAL REPORT 02/06/2025 9:22 AM - Electronically signed by Tyree Lang D.O. AP: AP Report ID: [id number] Reading Location: [place] [address] Mehreen Panchal NP IMG MRI PROCEDURES Final Result * Lipoprotein a (LPa) (02/05/2025 11:48 AM CDT) Lipoprotein A 9 <75 nmol/L [facility] Comment: ADDITIONAL INFORMATION Please notice that Lp(a) values are reported in molar units (nmol/L). These units are recommended by professional society guidelines and expert opinion statements. Measured results and risk thresholds are higher than those generated using mass units (mg/dL). Cardiovascular risk increases starting at 75 nmol/L. Lp(a) >=125 nmol/L is considered a risk enhancing factor by the [place] [employer]. This test has been modified from the admissions rn's instructions. Its performance characteristics were determined by [facility] in a manner consistent with CLIA requirements. This test has not been cleared or approved by the U.S. Food and Drug Administration. Test Performed by: [facility] - [address] [address] [employer]: Bob Wick Ph.D.; CLIA# [id number] Testing performed by: [address] [address] Blood 02/05/2025 11:4 8 AM CDT 02/05/2025 1:39 PM CDT us Luis M Paolo Suarez MD LAB BLOOD ORDERABLES Final Result [facility] [address] [facility] Department [place] [address] [facility] * Lipid panel (02/05/2025 11:48 AM CDT) Cholesterol 160 30 - 199 mg/dL Comment: Interpretive Data Ages < or = 19 years Acceptable: <170 mg/dL Borderline high: 170-199 mg/dL High: >or= 200 mg/dL Ages > or = 20 years Desirable: <200 mg/dL Borderline high: 200-239 mg/dL High: >or= 240 mg/dL Literature References: 1. Expert Panel on Integrated Guidelines for Cardiovascular Health and Risk Reduction in Children and Adolescents. Pediatrics 2011;128:S213 2. NCEP Expert Panel. Circulation 2004;110:227 Current Interpretive Data was last revised on 2018. Testing performed by: [address] [address] Triglycerides 75 <=149 mg/dL [facility] Comment: Interpretive Data Ages < or = 9 years Acceptable: <75 mg/dL Borderline high: 75-99 mg/dL High: >or= 100 mg/dL Ages 10 to 20 years Acceptable: <90 mg/dL Borderline high: 90-129 mg/dL High: >or= 130 mg/dL Ages > or = 20 years Desirable: <150 mg/dL Borderline high: 150-199 mg/dL High: 200-499 mg/dL Very high: >or= 499 mg/dL Literature References: 1. Expert Panel on Integrated Guidelines for Cardiovascular Health and Risk Reduction in Children and Adolescents. Pediatrics 2011;128:S213 2. NCEP Expert Panel. Circulation 2004;110:227 Current Interpretive Data was last revised on 2018. Testing performed by: [address] [address] HDL 81 >=40 mg/dL [facility] Comment: Interpretive Data Ages < or = 19 years Acceptable: >45 mg/dL Borderline low: 40-45 mg/dL Low: <40 mg/dL Ages > or = 20 years Desirable: >or= 60 mg/dL Low: <40 mg/dL Literature References: 1. Expert Panel on Integrated Guidelines for Cardiovascular Health and Risk Reduction in Children and Adolescents. Pediatrics 2011;128:S213 2. NCEP Expert Panel. Circulation 2004;110:227 Current Interpretive Data was last revised on 2018. Testing performed by: [address] [address] LDL, calculated 65 <=129 mg/dL [facility] Comment: Interpretive Data Ages < or = 19 years Acceptable: <110 mg/dL Borderline high: 110-129 mg/dL High: >or= 130 mg/dL Ages > or = 20 years Optimal: <100 mg/dL Near optimal: 100-129 mg/dL Borderline high: 130-159 mg/dL High: >160 mg/dL Calculated using the Alhaji LDL-C estimating equation. This equation was implemented on 2024. Prior to this date LDL-C was estimated using the Friedewald equation. Literature References: 1. Expert Panel on Integrated Guidelines for Cardiovascular Health and Risk Reduction in Children and Adolescents. Pediatrics 2011;128:S213 2. NCEP Expert Panel. Circulation 2004;110:227 3. Alhaji Salazar et al. [place] Cardiol. 2020 October 18;5(5):540-548. doi: 10.1001/jamacardio.2020.0013 Current Interpretive Data was last revised on 2024. Testing performed by: [address] [address] Non-HDL Cholesterol 79 mg/dL [facility] Comment: Interpretive Data Ages < or = 19 years Acceptable: <120 mg/dL Borderline high: 120-144 mg/dL High: >145 mg/dL Ages > or = 20 years When triglycerides are >200 mg/dL, Non-HDL cholesterol is a secondary target of therapy with treatment goals that are 30 mg/dL greater than the LDL cholesterol target. Literature References: 1. Expert Panel on Integrated Guidelines for Cardiovascular Health and Risk Reduction in Children and Adolescents. Pediatrics 2011;128:S213 2. NCEP Expert Panel. Circulation 2004;110:227 Current Interpretive Data was last revised on 2018. Testing performed by: [facility], [address] [place] [address]., [address] Chol/HDL ratio 2 [facility] Comment:Testing performed by : [facility], [address] [place] [address]., [address] Blood 02/05/2025 11:4 8 AM CDT 02/05/2025 1:39 PM CDT us Luis M Paolo Suarez MD LAB BLOOD ORDERABLES Final Result Performing Organization Address City/State/[facility] Co de Phone Number G[facility] [address] [facility] Department [place] [address] * US Breast Right Limited (02/05/2025 11:12 AM CDT) Anatomical Region Laterality Modality Breast Right Ultrasound 02/05/2025 11:5 1 AM CDT Impressions 02/05/2025 11:51 AM CDT 1. No suspicious finding is identified on either mammogram or ultrasound within the subareolar right breast to account for the asymmetry of concern seen at this location on prior CT chest. This is considered to represent asymmetric benign dense breast tissue. 2. No suspicious change in the right breast on mammogram. The method of initial detection of finding was other/incidental (N). OVERALL FINAL ASSESSMENT: BI-RADS Category 2: Benign. RECOMMENDATION: 1. Annual screening mammography is recommended. 2. Clinical follow-up is recommended. Electronically signed by: Tomas Pelletier M.D. Narrative 02/05/2025 11:51 AM CDT EXAMINATION: RIGHT UNILATERAL DIGITAL DIAGNOSTIC MAMMOGRAM AND DIGITAL BREAST TOMOSYNTHESIS; RIGHT BREAST SONOGRAM HISTORY: 79-year-old female with subareolar right breast asymmetry on prior CT chest. COMPARISON: CT chest and screening mammogram dated 11/20/2024. Outside diagnostic mammogram and breast ultrasound dated 04/28/2021. TECHNIQUE: Full field and spot compression digital mammographic views of the RIGHT breast were performed, including computer aided detection (CAD) and digital breast tomosynthesis (DBT). Directed ultrasound evaluation of the RIGHT breast was performed. BREAST PARENCHYMAL COMPOSITION: The breasts are heterogeneously dense, which may obscure small masses. MAMMOGRAM FINDINGS: There are benign calcifications in the right breast without suspicious change. The majority of these calcifications are either vascular or secretory in origin. The subareolar right breast asymmetry of concern on prior CT is not definitely appreciated on today's mammogram. No suspicious masses, suspicious calcifications, or other suspicious findings are seen within the right breast. SONOGRAM FINDINGS: Targeted ultrasound of the subareolar right breast demonstrates heterogeneous breast tissue with no ductal ectasia, intraductal filling defect, suspicious solid or cystic mass, or other suspicious finding. us Mehreen Panchal NP IMG MAMMO PROCEDURES Final Resul t * Diagnostic Mammogram Right W Daljit (02/05/2025 10:50 AM CDT) Anatomical Region Laterality Modality Breast Right Mammography 02/05/2025 11:5 1 AM CDT Impressions 02/05/2025 11:51 AM CDT 1. No suspicious finding is identified on either mammogram or ultrasound within the subareolar right breast to account for the asymmetry of concern seen at this location on prior CT chest. This is considered to represent asymmetric benign dense breast tissue. 2. No suspicious change in the right breast on mammogram. The method of initial detection of finding was other/incidental (N). OVERALL FINAL ASSESSMENT: BI-RADS Category 2: Benign. RECOMMENDATION: 1. Annual screening mammography is recommended. 2. Clinical follow-up is recommended. Electronically signed by: Tomas Pelletier M.D. Narrative 02/05/2025 11:51 AM CDT EXAMINATION: RIGHT UNILATERAL DIGITAL DIAGNOSTIC MAMMOGRAM AND DIGITAL BREAST TOMOSYNTHESIS; RIGHT BREAST SONOGRAM HISTORY: 79-year-old female with subareolar right breast asymmetry on prior CT chest. COMPARISON: CT chest and screening mammogram dated 11/20/2024. Outside diagnostic mammogram and breast ultrasound dated 04/28/2021. TECHNIQUE: Full field and spot compression digital mammographic views of the RIGHT breast were performed, including computer aided detection (CAD) and digital breast tomosynthesis (DBT). Directed ultrasound evaluation of the RIGHT breast was performed. BREAST PARENCHYMAL COMPOSITION: The breasts are heterogeneously dense, which may obscure small masses. MAMMOGRAM FINDINGS: There are benign calcifications in the right breast without suspicious change. The majority of these calcifications are either vascular or secretory in origin. The subareolar right breast asymmetry of concern on prior CT is not definitely appreciated on today's mammogram. No suspicious masses, suspicious calcifications, or other suspicious findings are seen within the right breast. SONOGRAM FINDINGS: Targeted ultrasound of the subareolar right breast demonstrates heterogeneous breast tissue with no ductal ectasia, intraductal filling defect, suspicious solid or cystic mass, or other suspicious finding. 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 CLINICAL INFORMATION: Current height: 63 inches Maximum height: 63 inches Weight: 123 pounds Risk factors: Postmenopausal COMPARISON: None available FINDINGS: AP LUMBAR SPINE L1-L4: Total BMD is 0.835 g/cm2 T-score is -1.9 LEFT HIP: Total BMD is 0.723 g/cm2 T-score is -1.8 Femoral neck BMD is 0.551 g/cm2 T-score is -2.7 FRAX: FRAX not reported due to T-scores of hip, femoral neck and/or spine being at or below -2.5 (Osteoporosis). IMPRESSION: Osteoporosis. REFERENCE: Bone mineral density: T-Score: Normal (T-score above or = -1.0) Low bone mass (T-score between -1.0 and -2.5) replaces the previously used term osteopenia Osteoporosis (T-score = or below -2.5) Z-Score: Within the expected range for age (Z-score above -2.0) Below the expected range for age (Z-score is -2.0 or below) Please see below follow up recommendations. Medical evaluation for secondary causes of low bone mineral density may be appropriate. FRAX is a World Health Organization validated fracture risk assessment tool that calculates a person's 10 year probability of a major osteoporosis related fracture and hip fracture. According to the National Osteoporosis Foundation guidelines, postmenopausal women and men age 50 or older with low bone mass and a 10 year probability of a major osteoporosis related fracture = or greater than 20% or a 10 year probability of a hip fracture = or greater than 3% should be considered for pharmacological treatment for the prevention of osteoporosis. For further information, including treatment recommendations, please refer to the 2019 ISCD Official Positions (http://www.iscd.org) and the NOF's Clinician's Guide to Prevention and Treatment of Osteoporosis (http://www.nof.org/professionals/clinical-guidelines) THIS IS AN ELECTRONICALLY VERIFIED FINAL REPORT 11/21/2024 10:58 AM - Electronically signed by Severiano Dumont M.D. 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 CLINICAL INFORMATION: Current height: 63 inches Maximum height: 63 inches Weight: 123 pounds Risk factors: Postmenopausal COMPARISON: None available FINDINGS: AP LUMBAR SPINE L1-L4: Total BMD is 0.835 g/cm2 T-score is -1.9 LEFT HIP: Total BMD is 0.723 g/cm2 T-score is -1.8 Femoral neck BMD is 0.551 g/cm2 T-score is -2.7 FRAX: FRAX not reported due to T-scores of hip, femoral neck and/or spine beingat or below -2.5 (Osteoporosis). IMPRESSION: Osteoporosis. REFERENCE: Bone mineral density: T-Score: Normal (T-score above or = -1.0) Low bone mass (T-score between -1.0 and -2.5) replaces thepreviously used term osteopenia Osteoporosis (T-score = or below -2.5) Z-Score: Within the expected range for age (Z-score above -2.0) Below the expected range for age (Z-score is -2.0 or below) Please see below follow up recommendations. Medical evaluation forsecondary causes of low bone mineral density may be appropriate. FRAX is a World Health Organization validated fracture risk assessmenttool that calculates a person's 10 year probability of a major osteoporosisrelated fracture and hip fracture. According to the National OsteoporosisFoundation guidelines, postmenopausal women and men age 50 or older with low bonemass and a 10 year probability of a major osteoporosis related fracture = or greater than 20% or a 10 year probability of a hip fracture = or greaterthan 3% should be considered for pharmacological treatment for the preventionof osteoporosis. For further information, including treatment recommendations, please referto the 2019 ISCD Official Positions (http://www.iscd.org) and the NOF's Clinician's Guide to Prevention and Treatment of Osteoporosis (http://www.nof.org/professionals/clinical-guidelines) THIS IS AN ELECTRONICALLY VERIFIED FINAL REPORT 11/21/2024 10:58 AM - Electronically signed by Severiano Dumont M.D. MF: PHIL Report ID: [id number] Reading Location: [id number] Mehreen Panchal NP IM DXA PROCEDURES Final Result * SCREENING MAMMOGRAM BILATERAL W DALJIT (11/20/2024 1:36 PM CDT) Anatomical Region Laterality Modality Breast Bilateral Mammography Impressions 11/21/2024 10:31 AM CDT Bilateral No evidence of malignancy in either breast. OVERALL BI-RADS FINAL ASSESSMENT: 2 - Benign RECOMMENDATION: Recommend bilateral annual screening mammography. Narrative 11/21/2024 10:31 AM CDT EXAMINATION: SCREENING MAMMOGRAM BILATERAL W DALJIT: 11/20/2024 COMPARISON: 04/28/2021 TECHNIQUE: Mammography was performed with 2D and digital breast tomosynthesis (DBT) images. CAD was utilized. BREAST PARENCHYMAL COMPOSITION: The breasts are heterogeneously dense, which may obscure small masses. FINDINGS: Bilateral There is no suspicious mass, calcification, or architectural distortion in either breast.There are benign calcifications in both breasts. us Mehreen Panchal NP [facility] MAMMO PROCEDURES Final Resul t * Hepatitis C antibody (04/18/2021 12:06 PM CDT) Hep C Ab Nonreactive Nonreactive GAYATRI Comment: Interpretive Data Nonreactive: Antibodies to HCV not detected. Does NOT exclude the possibility of recent exposure to HCV. Equivocal: Equivocal for HCV antibodies. Supplemental molecular testing will be automatically performed to determine infection status in accordance with current CDC screening recommendations. Reactive: Positive for HCV antibodies. This may represent current or past HCV infection. Supplemental molecular testing will be automatically performed to determine current infection status in accordance with current CDC screening recommendations. Interpretive data was last revised on 2019. Blood 04/18/2021 12:0 6 PM CDT 04/18/2021 2:25 PM CDT Mehreen Panchal NP LAB MICROBIOLOGY - GENERAL ORDER KYM Final Result [facility] [address] [facility] Department [place] [address] from Last 3 Months or Most Recently Relevant to Health Maintenance Insurance [id number] [place] [address] MEDICARE ADVANTAGE Care Teams Technical Assistance Consultant Relationship Specialty Start Date End Date Mehreen Panchal NP [address] [place] [id number] PCP - General Family Medicine 07/04/24
--- OUTSIDE RECORDS SUMMARY | 2025-03-24 20:28 | XMS_ITS | Encounter Summary ---
Author Organization [facility] Healthcare Address [address] [place] [address] Care Team Providers Care Consulting Project Director Name Role Phone Mehreen Panchal NP Primary Care Provider [phone] Encounter Details Date Type Department Care Team ([facility] st Contact Info) Description 02/05/2025 Results Follow-Up [facility] Medical Group Primary [facility] at [place] [address] [phone] Mehreen Panchal NP [facility] [address] Diagnostic Mammogram Right W Daljit, US Breast Right Limited, MRI Thoracic Spine WO Contrast Social History Tobacco Use Types Packs/Day Years Used Date Smoking Tobacco: Never AUDIT-C Answer Date Recorded Q1: How often [...] on file 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
--- OUTSIDE RECORDS SUMMARY | 2025-03-24 20:28 | XMS_ITS | Encounter Summary ---
Author Organization [facility] Healthcare Address [address] [place] [address] Care Team Providers Care Back Tender Cylinder Name Role Phone Maldonado Carroll Primary Care Provider + Mehreen Panchal NP Primary Care Provider [phone] Encounter Details Date Type Department Care Team (Late st Contact Info) Description 06/04/2024 Orders Only [facility] Information Management [address] [place] [id number] Scanning, Provider Social History Tobacco Use Types Packs/Day Years Used Date Smoking Tobacco: Never AUDIT-C Answer Date Recorded Q1: How often do you have a drink containing alc ohol? Never 03/23/2021 Q2: How many drinks containi ng alcohol do you have on a typical day when you are drinking? 1 or 2 03/23/2021 Q3: How often do you have six or more drinks on one occasion? 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 Gender Identity Not on file Sexual Orientation Not on file documented as of this encounter Plan of Treatment Not on file documented as of this encounter Procedures Procedure Name Priority Date/Time Associated Diagnosis Comments SCAN - RADIOLOGY/IMAGING 06/04/2024 CARDIOLOGY DOCUMENT SCAN 06/04/2024 documented in this encounter Results * Cardiology Document Scan (06/04/2024) Anatomical Region Laterality Modality Other us Provider Scanning CV CARDIAC SERVICES PROCEDURES Final Result * SCAN - RADIOLOGY/IMAGING (06/04/2024) Anatomical Region Laterality Modality Other us Provider Scanning Final Result documented in this encounter Visit Diagnoses Not on filedocumented in this encounter Care Teams Back Tender Cylinder Relationship Specialty Start Date End Date Maldonado Carroll PA [address] [place] [address] PCP - General Internal Medicine 06/04/24 07/03/24 Mehreen Panchal NP [address] [place] [phone] PCP - General Family Medicine 07/04/24 documented as of this encounter
--- OUTSIDE RECORDS SUMMARY | 2025-03-24 20:28 | XMS_ITS | Clinical Summary ---
Author Organization [facility] Address [address] [place] [address] Care Team Providers Care Manager Of Exhibitions And Collections Name Role Phone Zack Mason MD Primary Care Provider Unav ailable Allergies No known active allergies Medications metoprolol succinate ER 25 MG 24 hr tablet metoprolol succinate ER 25 mg tablet,extended release 24 hr Active gabapentin 300 MG capsule TAKE 1 CAPSULE BY MOUTH EVERYDAY AT BEDTIME Active diclofenac sodium 1 % gel diclofenac 1 % topical gel APPLY 2GM TO AFFECTED AREA(S) ON ELBOW, WRIST, OR HAND 4 TIMES DAILY Active Active Problems Problem Noted Date Diagnosed Date Biceps muscle tear, right, initial encounter Injury of right rotator cuff, initial encounter 07/15/2020 Immunizations Immunization Administration Dates Next Due Influenza Adult (Generic) 03/18/2020 MODERNA COVID-19 (12+) MRNA, LNP-S, PF, 100 MCG/ 0.5 ML DOSE 10/07/2020,09/09/2020 Family History Medical History Relation Comments Cancer Father Relation Status Comments Father Mother Social History Tobacco Use Types Packs/Day Years Used Date Smoking Tobacco: Never Smokeless Tobacco: Never Alcohol Use Standard Drinks/Week Comments Yes 0 (1 standard drink = 0.6 oz pur e alcohol) wine Comments Unknown Sex and Gender Information Value Date Recorded Sex Assigned at Not on file Legal Sex Female 5:16 PM CDT Gender Identity Not on file Sexual Orientation Not on file Last Filed Vital Signs Vital Sign Reading Time Taken Comments Blood Pressure 120/80 07/15/2020 1:41 PM DENITRATOR Pulse 71 07/15/2020 1:41 PM DENITRATOR Temperature - - Respiratory Rate - - Oxygen Saturation - - Inhaled Oxygen Concentration - - Weight 57.7 kg (127 lb 3.2 oz) 07/15/2020 1:41 P M DENITRATOR Height 166.4 cm (5' 5.5) 07/15/2020 1:41 PM DENITRATOR Body Mass Index 20.85 07/15/2020 1:41 PM DENITRATOR Plan of Treatment Health Maintenance Due Date Last Done Comments Hepatitis C 1963 DTaP, Tdap and Td Vaccines ( 1 - Tdap) 1966 Zoster Vaccines (1 of 2) 1997 Annual Medicare Wellness Visit 2012 Pneumococcal Vaccine: 50+ Years (2 of 2 - PPSV23) 11/04/2019 11/03/2018 RSV Immunization or 60+ Years (1 - 1-dose 75+ series) 2022 COVID-19 Vaccine (3 - 2024-2 6 season) 2025 10/07/2020, 09/09/2020 Dexa Scan (General) Completed 05/12/2018 Meningococcal B Vaccine Aged Out No l onger eligible based on patient's age to complete this topic Meningococcal Vaccine Aged Out No fahad karly eligible based on patient's age to complete this topic RSV Immunizations Under 20 Months Aged Out No longer eligible b ased on patient's age to complete this topic Procedures Procedure Name Priority Date/Time Associated Diagnosis Comments BONE DENSITY GENERIC (SCAN ORDER) 05/12/2018 from Last 3 Months or Most Recently Relevant to Health Maintenance Results * BONE DENSITY GENERIC (05/12/2018) Anatomical Region Laterality Modality Other 05/12/2018 Narrative 05/12/2018 Ordered by an unspecified provider. us Documents Scanned SCANNING Final Result from Last 3 Months or Most Recently Relevant to Health Maintenance Insurance MEDICARE [facility] Care Teams Manager Of Exhibitions And Collections Relationship Specialty Start Date End Date Zack Mason MD PCP - General FAMILY PRACTICE 07/15/20
== END 2025-03-24 20:00 | disposition left against medical advice (07) ==
LOC: ANHED 20:26
DX: R10.A2 Flank pain, left side (principal)
CPT/HCPCS: 99199